=== PATIENT | female | born 1950 | race Caucasian/White ===

== ENCOUNTER 2016-10-04 18:21 | Observation (INO) | payer MEDICARE, BC ==
[2016-10-04] MEDS ORDERED: NITROGLYCERIN OINT 1 INCH/GM PACKET TOPICAL STA (18:39)
[2016-10-04] MEDS ORDERED: NITROGLYCERIN SL TABS 0.4 MG TAB SUBLINGUAL STA (18:39)
[2016-10-04] MEDS ORDERED: ASPIRIN 81 MG CHEW PO STA (18:39)
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
[2016-10-04 18:59] LABS: Basophils % (A) 1 %; CHCM 35.1; Eosinophils # (A) 0.2 k/uL (0-0.7); Eosinophils % (A) 4 %; HCT 35.7 % (34.0-46.0); HGB 12.1 gm/dL (11.4-16.0); Luc # (Auto) 0.21; Luc % (Auto) 4; Lymphocytes # (A) 1.8 k/uL (1.0-4.8); Lymphocytes % (A) 38 %; MCH 29.2 pg (25.0-35.0); MCHC 33.9 g/dL (31.0-37.0); MCV 86.1 fL (80.0-100.0); Mean Platelet Volume 8.4; Monocytes # (A) 0.3 k/uL (0-1.0); Monocytes % (A) 7 %; Neutrophils # (A) 2.3 k/uL (1.3-7.7); Neutrophils % (A) 47 %; RBC 4.15 m/uL (3.80-5.40); RDW 13.8 % (11.5-15.5); WBC 4.8 k/uL (3.8-10.6)
[2016-10-04] MEDS ORDERED: ONDANSETRON 4 MG/2 ML VIAL IVP STA (19:06)
[2016-10-04 19:09] LABS: ALT 29 U/L (9-52); AST 22 U/L (14-36); Alkaline Phosphatase 102 U/L (38-126); Anion Gap 11 mmol/L; Blood Urea Nitrogen 22 mg/dL (7-17); Calcium 9.2 mg/dL (8.4-10.2); Carbon Dioxide 25 mmol/L (22-30); Chloride 105 mmol/L (98-107); Glucose 100 mg/dL (74-99); Magnesium 2.1 mg/dL (1.6-2.3); Non-African American GFR(MDRD) 54 (>60 ml/min/1.73 sqM); Potassium 3.7 mmol/L (3.5-5.1); Sodium 141 mmol/L (137-145); Total Bilirubin 0.3 mg/dL (0.2-1.3); Total Protein 6.5 g/dL (6.3-8.2)
[2016-10-04 19:11] LABS: INR 0.9 (<1.1); Partial Thromboplastin Time 22.9 sec (22.0-30.0); Prothrombin Time 9.6 sec (9.0-12.0)
[2016-10-04 19:26] LABS: Creatine Kinase 97 U/L (30-135)
[2016-10-04 19:39] LABS: Creatine Kinase MB 1.7 ng/mL (0.0-2.4); Troponin I <0.012 ng/mL (0.000-0.034)
--- NOTE | 2016-10-04 20:00 | XR ---
EXAMINATION TYPE: XR chest 2V DATE OF EXAM: 10/04/2016 7:26 PM COMPARISON: N May 18, 2016 HISTORY: Pain, dizzy and nausea TECHNIQUE: Frontal and lateral views of the chest are obtained. FINDINGS: There is redemonstration of the prominent intrathoracic stomach, seen is a gas bubble over the heart. This appears to represent one third of the expected volume of the stomach. The lungs are clear bilaterally. Pleural spaces are negative. The cardiac silhouette is negative. Med iastinal silhouette and bones and soft tissues are negative. IMPRESSION: No acute process. Redemonstrated intrathoracic stomach noted.
[2016-10-04] MEDS ORDERED: NITROGLYCERIN SL TABS 0.4 MG TAB SUBLINGUAL PRN (20:04)
[2016-10-04] MEDS ORDERED: HEPARIN SODIUM,PORCINE 5,000 UNIT/ML 1 ML VIAL IV ONE (20:04)
[2016-10-04] MEDS ORDERED: HEPARIN SODIUM,PORCINE 5,000 UNIT/ML 1 ML VIAL IV PRN (20:04)
[2016-10-04] MEDS ORDERED: HEPARIN SODIUM,PORCINE/D5W PMX 25,000 UNIT in DEXTROSE/WATER 1 500ML.BAG IV SCH (20:15)
[2016-10-04] MEDS: NITROGLYCERIN OINT 1 INCH/GM PACKET TOPICAL SCH (23:50)
[2016-10-05 02:26] LABS: Creatine Kinase 70 U/L (30-135)
[2016-10-05 02:39] LABS: Creatine Kinase MB 1.3 ng/mL (0.0-2.4); Troponin I <0.012 ng/mL (0.000-0.034)
[2016-10-05] MEDS: NITROGLYCERIN OINT 1 INCH/GM PACKET TOPICAL SCH ×2 (06:31→13:31)
[2016-10-05] MEDS: ACETAMINOPHEN TAB 325 MG TAB PO PRN ×2 (06:55→15:32)
[2016-10-05 07:07] LABS: Mean Platelet Volume 8.5
[2016-10-05 07:28] LABS: Creatine Kinase 62 U/L (30-135)
[2016-10-05 07:40] LABS: Creatine Kinase MB 1.1 ng/mL (0.0-2.4); Troponin I <0.012 ng/mL (0.000-0.034)
--- NOTE | 2016-10-05 08:05 | CONS ---
DATE OF CONSULTATION: CHIEF COMPLAINT: Chest pain. This is a 66-year-old lady with history of back pain and hypertension came to hospital complaining of chest pain. She describes it as a chest pressure in the precordial area without definite radiation to neck, arm or back, unassociated with diaphoresis and unrelated to exertion. At the time of my evaluation this morning, she is pain free and hemodynamically stable. She has had 3 sets of troponins that are all within normal limits. She has an evidence of old inferior wall myocardial infarction. EKG shows old inferior wall myocardial infarction. Patient tells me that she had a cardiac catheterization last year at [facility] and had mild nonobstructive disease. I do not have any of these records with me at this time. Past medical history is significant for back pain. Medications at home include Tumeric, ropinirole, Dyazide, Lyrica, K-Dur, Prevacid, Motrin, [place], Celebrex, aspirin and vitamin C. Allergic to MORPHINE, VICODIN and TOLECTIN. Family history is negative for premature coronary artery disease. SOCIAL HISTORY: Negative for current smoking, EtOH abuse or drug abuse. REVIEW OF SYSTEMS: HEENT: Unremarkable. CARDIAC: As described above. RESPIRATORY: Negative. GI: Negative. GENITOURINARY: Negative. ALLERGY/IMMUNOLOGY: Negative. MUSCULOSKELETAL: Significant for arthritis. PSYCHOSOCIAL: Negative. ENDOCRINE: Negative. HEMATOLOGICAL: Negative. DERMATOLOGIC: Negative. CONSTITUTIONAL: Negative. ONCOLOGICAL: Negative. The rest of the system review is not relevant. On exam, comfortable at rest, afebrile, heart rate is 68 beats per minute, blood pressure is 106/67, respiratory rate is 18. There is no jugular venous distention. Carotid upstroke is normal. There is no bruit. Chest exam reveals good air entry bilaterally. Heart exam reveals first and second heart sounds. No gallop. No murmur. Abdomen is soft, nontender. Exam of extremities did not reveal any edema. Peripheral pulses are felt. CROWN IRONER OPERATOR exam did not reveal focal neurological deficits. Labs show that the hemoglobin is 12.1. Platelet count is 186. Creatinine is 1. Potassium is 3.7. Two sets of tropes are negative. ASSESSMENT: Chest pain, rule out coronary artery disease. Patient's chest discomfort somewhat atypical. I will obtain a stress test on her. If this is normal, she will go home . If this is abnormal, we will consider cardiac catheterization on her.
[2016-10-05] MEDS ORDERED: IBUPROFEN 800 MG TAB PO PRN (08:19)
[2016-10-05 08:46] LABS: Cholesterol 146 mg/dL (<200); HDL Cholesterol 47 mg/dL (40-60); Triglycerides 91 mg/dL (<150)
[2016-10-05] MEDS ORDERED: MELOXICAM 7.5 MG TAB PO SCH (09:00)
[2016-10-05] MEDS ORDERED: PANTOPRAZOLE 40 MG TABLET PO SCH (09:00)
[2016-10-05] MEDS ORDERED: TRIAMTERENE-HCTZ 37.5-25MG 1 EACH CAP PO SCH (09:00)
[2016-10-05] MEDS ORDERED: POTASSIUM CHLORIDE ER 20 MEQ TAB.ER PO SCH (09:00)
[2016-10-05] MEDS ORDERED: NON-FORMULARY DRUG (Turmeric Root Extract [Turmeric] 500 MG) PO SCH (09:00)
[2016-10-05] MEDS ORDERED: ASCORBIC ACID 500 MG TAB PO SCH (09:00)
[2016-10-05] MEDS ORDERED: ASPIRIN 325 MG TAB PO SCH (09:00)
[2016-10-05] MEDS ORDERED: PREGABALIN 50 MG CAP PO SCH (09:00)
--- NOTE | 2016-10-05 09:55 | ECHOF ---
Referral Reason:[place] MEASUREMENTS -------- HEIGHT: 167.6 cm WEIGHT: 68.0 kg BP: 106/67 RVIDd: 3.1 cm (< 3.3) IVSd: 1.1 cm (0.6 - 1.1) LVIDd: 4.4 cm (3.9 - 5.3) LVPWd: 1.1 cm (0.6 - 1.1) IVSs: 1.6 cm LVIDs: 2.7 cm LVPWs: 1.3 cm LA Diam: 2.9 cm (2.7 - 3.8) LAESV Index (A-L): 32.31 ml/m Ao Diam: 3.4 cm (2.0 - 3.7) AV Cusp: 2.4 cm (1.5 - 2.6) MV EXCURSION: 13.536 mm (> 18.000) MV EF SLOPE: 28 mm/s (70 - 150) EPSS: 0.3 cm MV E Jossue: 1.00 m/s MV DecT: 192 ms MV A Jossue: 1.12 m/s MV E/A Ratio: 0.90 RAP: 5.00 mmHg RVSP: 23.88 mmHg FINDINGS -------- Sinus rhythm. This was a technically good study. The left ventricular size is normal. There is borderline concentric left ventricular hypertrophy. Overall left ventricular systolic function is normal with, an EF between 60 - 65 %. Mild asymmetric septal hypertrophy with septal thickness 1.3 - 1.5 cm. The right ventricle is normal in size. LA is midly dilated 29-33ml/m2. The right atrium is normal in size. The aortic valve is trileaflet and appears structurally normal. There is trace to mild mitral regurgitation. Trace tricuspid regurgitation present. Right ventricular systolic pressure is normal at < 35 mmHg. Trace/mild (physiologic) pulmonic regurgitation. The aortic root size is normal. Normal inferior vena cava with normal inspiratory collapse consistent with estimated right atrial pressure of 5 mmHg. There is no pericardial effusion. CONCLUSIONS -------- 1. Sinus rhythm. 2. The aortic valve is trileaflet and appears structurally normal. 3. There is trace to mild mitral regurgitation. 4. Trace tricuspid regurgitation present. 5. Right ventricular systolic pressure is normal at < 35 mmHg. 6. Trace/mild (physiologic) pulmonic regurgitation. 7. The aortic root size is normal. 8. There is no pericardial effusion. 9. This was a technically good study. 10. The left ventricular size is normal. 11. There is borderline concentric left ventricular hypertrophy. 12. Overall left ventricular systolic function is normal with, an EF between 60 - 65 %. 13. Mild asymmetric septal hypertrophy with septal thickness 1.3 - 1.5 cm. 14. The right ventricle is normal in size. 15. LA is midly dilated 29-33ml/m2. 16. The right atrium is normal in size. CHAIR MECHANIC: Elza Mondragon RDCS
[2016-10-05] MEDS: HYDROcodone/APAP 10-325MG 1 EACH TAB PO PRN ×2 (10:48→17:05)
--- NOTE | 2016-10-05 11:12 | EST ---
DATE OF SERVICE: 10/05/2016 AGE: 66Y SEX: F HT: 5'6" WT: 155 lbs. Protocol Epi: X Other: Cardiolite Stage: II Dur. of Exercise: 4 minutes *Heart Rate Blood Pressure *Rest: 88 Rest: 149/91 * *Max. Achieved: 145 Maximum BP: 189/81 85% PMHR: 132 100% PMHR: 155 *METS: 4.6 INDICATION OF THE STUDY: Chest pain. MEDICATIONS: STRESS DATA: Pretesting physical examination showed a heart rate of 88, pressure is 149/91 mmHg. Baseline EKG showed sinus rhythm. The patient exercised on the treadmill according to Epi protocol for a total of 4 minutes and achieved 4.6 METs. Max heart rate was 145, which is about 93% of maximum predicted heart rate. Maximum blood pressure was 189/81 mmHg. Clinically, the patient did not have any symptoms and the EKG did not show any significant ST or T wave abnormalities consistent with ischemia. CONCLUSION: 1. Average exercise capacity. 2. Normal EKG in response to exercise.
--- NOTE | 2016-10-05 11:16 | NM ---
EXAMINATION TYPE: NM stress cardiolite complete DATE OF EXAM: 10/05/2016 10:48 AM COMPARISON: Chest x-ray 04 Oct 2016 HISTORY: Chest pain, unstable angina TECHNIQUE: After the intravenous administration of 10.8 mCi Tc 99m Sestamibi - Rest images obtained 80 minutes post injection. The patient exercised using a ADEOLA protocol and 1 minute prior to peak exercise was injected with 27.5 mCi Tc 99m Sestamibi - Stress images obtained 10 minutes post injecti on. FINDINGS: Targeted heart rate was achieved during performance of the study. Review of stress and rest SPECT denia ges demonstrates no distinct perfusion abnormality. Gated analysis shows normal wall motion with an estimated left ventricular ejection fraction of 67 %. IMPRESSION: No scintigraphic evidence for reversible ischemia, consider echocardiographic correlation for ejectio n fraction
[2016-10-05] MEDS ORDERED: MULTIVITAMINS, THERA 1 EACH TAB PO SCH (12:00)
[2016-10-05 15:28] VITALS: BP 133/82; PULSE 63; RESP 18; TEMP 98.5
--- NOTE | 2016-10-05 18:43 | HP ---
DATE OF ADMISSION: CHIEF COMPLAINT: Chest pain. HISTORY OF PRESENT ILLNESS: Ms. Villa is a 66-year-old female with a known history of hypertension, recent back surgery about 3-1/2 months back, GERD, history of myocardial infarction 6 months back, status post cardiac catheterization at [facility] showed mild obstructive coronary artery disease, came to the hospital with complaints of chest pain, mainly in the retrosternal and epigastric region. Associated with nausea. No vomiting. Associated with dizziness, lightheadedness and no diaphoresis. No radiation to the arm, neck or back. Patient was admitted to the hospital for further evaluation. Patient had 3 negative troponins and EKG showed old inferior wall myocardial infarction. Otherwise, the patient is currently chest pain free at this time. Patient felt like a bandlike sensation in the chest. Patient was seen by Cardiology and patient underwent Cardiolite stress test and echocardiogram. REVIEW OF SYSTEMS: CONSTITUTIONAL: No fever. No chills. RESPIRATORY: No cough or sputum production. CARDIOVASCULAR: No chest pain. No short of breath. No leg swelling. ABDOMEN: No nausea or vomiting or abdominal pain. GENITOURINARY: Negative. ENDOCRINE: Negative. PSYCHIATRY: Negative. SKIN: Negative. All other 14 point review of systems negative except as above. PAST MEDICAL HISTORY: Hypertension, chronic back pain and recent back surgery, degenerative disc disease and fibromyalgia, history of myocardial infarction and bilateral lower extremity neuropathy. Hiatal hernia. PAST SURGICAL HISTORY: Appendectomy, hysterectomy, orthopedic surgery, tonsillectomy, back surgery with spacers, 2 rods to L4 and L5. No psychosocial history. 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 No tobacco use. No alcohol use. Patient does use candy containing marijuana. FAMILY HISTORY: Mother has fibromyalgia, neuropathy and cancer. Father, did not know her father. ALLERGIES INCLUDE: HYDROCODONE FROM VICODIN, MORPHINE AND TOLMETIN. Home medication include: Prevacid, Lyrica, Dyazide, Ropinirole, aspirin, Celebrex, K-Dur, ascorbic acid, ibuprofen, multivitamins, turmeric root extract and [place] 10. PHYSICAL EXAMINATION: A 66-year-old female, lying in bed comfortably, awake, alert, oriented, x3, appears to be in no apparent distress. VITALS: Blood pressure is 114/60, pulse is 90, respiratory rate 14, temperature afebrile, pulse ox 98% on room air. HEENT: Atraumatic, normocephalic. Neck is supple. No JVD. CVS: S1, S2 heard. No murmurs, no gallop, no rub. LUNGS: Bilateral air entry is present. No wheezing. No crackles. ABDOMEN: Soft, nontender. Bowel sounds are present. TELECOMMUNICATIONS LINE INSTALLER: Awake, alert, oriented x3. No focal deficit. EXTREMITIES: No edema. Pulses palpable bilaterally. No clubbing or cyanosis. PSYCHIATRIC: Cooperative. LABORATORY DATA: WBC 4.8, hemoglobin 12.1, platelets 186, INR 0.9, sodium 141, potassium 3.7, chloride 105, bicarb is 25. BUN 22, creatinine 1.02, blood sugar is 100, troponin x3 negative. LDL is 81, albumin 4.0. CK showed normal sinus rhythm. CHEST X-RAY: No acute process, showed hiatal hernia. IMPRESSION: 1. Chest pain rule out acute coronary syndrome. Serial EKGs and troponins x3 negative. Patient underwent Cardiolite stress test today. Cardiology is following the patient. Continue with telemetry. 2. History of inferiori wall myocardial infarction and cardiac catheterization showed mild coronary artery disease at [facility]. 3. Gastroesophageal reflux disease. 4. Hiatal hernia. 5. NSAID use in the form of Celebrex and Motrin. 6. Chronic back pain. 7. Degenerative disc disease. 8. Recent back surgery about 2 and half months back. 9. Hiatal hernia. 10. Hypertension. DISCUSSION AND PLAN: Patient will be continued on telemetry monitoring, serial EKGs and troponins. Follow up on Cardiolite stress test report and 2-D echocardiogram. Patient advised to discontinue NSAIDs and follow with stress test report. Continue the current management and further recommendations based on the clinical course.
--- NOTE | 2016-10-06 09:47 | DS ---
DATE OF ADMISSION: 10/04/2016 DATE OF DISCHARGE: 10/05/2016 DISCHARGE DIAGNOSES: 1. Chest pain, rule out acute coronary syndrome. Negative Cardiolite stress test. 2. History of myocardial infarction and mild coronary artery disease. 3. Gastroesophageal reflux disease. 4. Hiatal hernia. 5. NSAID use. 6. Fibromyalgia. 7. Chronic back pain and recent back surgery about 2-1/2 months back. 8. Hypertension. HOSPITAL COURSE: Ms. Villa is a 66-year-old female with a known history of SD was admitted to the hospital with complaints of chest pain, bandlike sensation and the patient underwent serial EKGs and troponins are negative. Patient underwent Cardiolite stress test, which is also negative. Patient recently had a cardiac cath about 6 months back at [facility] for an inferior wall SD. Otherwise, the patient's cardiac workup has been negative at this time. The patient advised to stop using NSAID and continue with Prevacid now. Recommend to follow with branch library clerk as an outpatient for further evaluation. Patient does have a history of hiatal hernia and GERD. Otherwise, patient is chest pain free now. Patient will be discharged home and follow with the primary care physician in 1to 3 days. DISCHARGE PHYSICAL EXAMINATION: A 66-year-old female lying in the bed. awake, alert, oriented x3,k appears to be in no apparent distress. VITALS: Blood pressure 133/82, pulse is 63, respirations 18, temperature afebrile, pulse ox 98% on room air. Laboratory data reviewed. LDL is 81. Discharge physical examination done. Discharge medications include: 1. Prevacid 30 mg p.o. b.i.d. 2. Pregabalin 150 mg p.o. b.i.d. 3. Dyazide 1 capsule p.o. q.a.m., 37.5/25. 4. Ropinirole 2 mg p.o. b.i.d. 5. [place] 10 one tablet q.6 hourly p.r.n. for pain. 6. Aspirin 81 mg p.o. daily. 7. Potassium chloride 20 mEq p.o. daily. 8. Vitamin C 500 mg p.o. daily. 9. Multivitamins 1 tablet p.o. daily. 10. Turmeric Root Extract 500 mg p.o. daily. Patient will be discharged home in stable condition. Follow with Dr. Ron Sol on the September at 3:15 p.m.; Dr. Bakari Jack in 1 to 3 days. Home with self-care. Heart healthy diet and cardiac diet.
== END 2016-10-05 17:30 | disposition home or self-care (01) ==
LOC: EC 18:21 → 3OBS 20:04
PROVIDERS: ADMIT Internal Medicine; ATTEND Internal Medicine
DX: R07.89 Other chest pain (principal); I25.10 Atherosclerotic heart disease of native coronary artery without angina pectoris; G25.81 Restless legs syndrome; G89.29 Other chronic pain; M54.9 Dorsalgia, unspecified; I10 Essential (primary) hypertension; I25.2 Old myocardial infarction; K21.9 Gastro-esophageal reflux disease without esophagitis; K44.9 Diaphragmatic hernia without obstruction or gangrene; M79.7 Fibromyalgia; Z88.5 Allergy status to narcotic agent; R11.0 Nausea; R06.02 Shortness of breath; Z79.82 Long term (current) use of aspirin; Z79.1 Long term (current) use of non-steroidal anti-inflammatories (NSAID); Z79.899 Other long term (current) drug therapy; Z88.8 Allergy status to other drugs, medicaments and biological substances
CPT/HCPCS: 36415; 93005; 93017; 93306; 80061; 80053; 82550 ×2; 82553 ×2; 83735; 84484 ×2; 85025; 85049; 85610; 85730 ×2; 71020; 78452; 99285; 96365; 96366; 96375; 96376; G0378 ×2; A9500; J1644 ×3; J2405

== ENCOUNTER 2018-02-08 20:28 | Emergency (ER) | payer MEDICARE, BC ==
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
[2018-02-08] MEDS ORDERED: HYDROcodone/APAP 7.5-325MG 1 EACH TAB PO ONE (22:08)
[2018-02-08 22:38] LABS: Basophils % (A) 1 %; Eosinophils # (A) 0.2 k/uL (0-0.7); Eosinophils % (A) 4 %; HCT 31.8 % (34.0-46.0); Lymphocytes # (A) 0.9 k/uL (1.0-4.8); Lymphocytes % (A) 17 %; MCH 29.7 pg (25.0-35.0); MCHC 34.7 g/dL (31.0-37.0); MCV 85.5 fL (80.0-100.0); Monocytes # (A) 0.3 k/uL (0-1.0); Monocytes % (A) 6 %; Neutrophils # (A) 3.7 k/uL (1.3-7.7); Neutrophils % (A) 71 %; Platelet Count 190 k/uL (150-450); RBC 3.72 m/uL (3.80-5.40); RDW 14.1 % (11.5-15.5); WBC 5.2 k/uL (3.8-10.6)
[2018-02-08 22:49] LABS: Calcium 9.4 mg/dL (8.4-10.2); Potassium 3.8 mmol/L (3.5-5.1)
--- NOTE | 2018-02-08 23:46 | US ---
EXAMINATION TYPE: US venous doppler duplex LE RT DATE OF EXAM: 02/08/2018 10:08 PM COMPARISON: CLINICAL HISTORY: Pain. Knee pain with slight swelling. No hx of blood clots. On baby aspiring. SIDE PERFORMED: Right TECHNIQUE: The lower extremity deep venous system is examined utilizing real time linear array sonog aury with graded compression, doppler sonography and color-flow sonography. VESSELS IMAGED: External Iliac Vein (EIV) Common Femoral Vein Deep Femoral Vein Greater Saphenous Vein * Femoral Vein Popliteal Vein Small Saphenous Vein * Proximal Calf Veins (* superficial vessels) Right Leg: Negative for DVT IMPRESSION: Normal exam. No evidence of deep venous thrombosis in the right leg.
[2018-02-09] MEDS ORDERED: predniSONE 20 MG TAB PO STA (00:08)
[2018-02-09] MEDS ORDERED: fentaNYL (PF) 50 MCG/ML 2 ML AMP IV STA (00:15)
[2018-02-09 00:32] VITALS: BP 133/71; PULSE 82; RESP 20; TEMP 97.7
== END 2018-02-09 00:53 | disposition home or self-care (01) ==
LOC: EC 20:28
DX: M79.604 Pain in right leg (principal); R58 Hemorrhage, not elsewhere classified; M79.89 Other specified soft tissue disorders; I10 Essential (primary) hypertension; K21.9 Gastro-esophageal reflux disease without esophagitis; M19.90 Unspecified osteoarthritis, unspecified site; G25.81 Restless legs syndrome; G62.9 Polyneuropathy, unspecified; M79.7 Fibromyalgia; I25.2 Old myocardial infarction; Z79.82 Long term (current) use of aspirin; Z79.899 Other long term (current) drug therapy; Z88.5 Allergy status to narcotic agent; Z88.6 Allergy status to analgesic agent; Z82.69 Family history of other diseases of the musculoskeletal system and connective tissue
CPT/HCPCS: 36415; 85379; 80048; 85025; 93971; 99284; 96374; J3010; J7512

== ENCOUNTER 2018-07-29 11:57 | Observation (INO) | payer MEDICARE, BC ==
[2018-07-29] MEDS ORDERED: NITROGLYCERIN OINT 1 INCH/GM PACKET TOPICAL STA (12:03)
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
[2018-07-29 12:18] LABS: Basophils % (A) 0 %; Eosinophils # (A) 0.2 k/uL (0-0.7); Eosinophils % (A) 5 %; HCT 34.4 % (34.0-46.0); HGB 11.6 gm/dL (11.4-16.0); Lymphocytes # (A) 1.1 k/uL (1.0-4.8); Lymphocytes % (A) 27 %; MCH 28.8 pg (25.0-35.0); MCHC 33.6 g/dL (31.0-37.0); MCV 85.8 fL (80.0-100.0); Mean Platelet Volume 7.6; Monocytes # (A) 0.3 k/uL (0-1.0); Monocytes % (A) 6 %; Neutrophils # (A) 2.5 k/uL (1.3-7.7); Neutrophils % (A) 61 %; Platelet Count 206 k/uL (150-450); RBC 4.01 m/uL (3.80-5.40); RDW 13.1 % (11.5-15.5); WBC 4.2 k/uL (3.8-10.6)
[2018-07-29 12:31] LABS: ALT 24 U/L (9-52); AST 21 U/L (14-36); Albumin 4.1 g/dL (3.5-5.0); Alkaline Phosphatase 81 U/L (38-126); Anion Gap 9 mmol/L; Blood Urea Nitrogen 17 mg/dL (7-17); Calcium 9.7 mg/dL (8.4-10.2); Carbon Dioxide 26 mmol/L (22-30); Chloride 108 mmol/L (98-107); Glucose 94 mg/dL (74-99); Magnesium 2.2 mg/dL (1.6-2.3); Potassium 4.1 mmol/L (3.5-5.1); Sodium 143 mmol/L (137-145); Total Bilirubin 0.3 mg/dL (0.2-1.3); Total Protein 6.6 g/dL (6.3-8.2)
--- NOTE | 2018-07-29 12:34 | XR ---
EXAMINATION TYPE: XR chest 2V DATE OF EXAM: 07/29/2018 COMPARISON: 12/23/2016 INDICATION: Chest pain, abnormal EKG TECHNIQUE: Frontal and lateral views of the chest are obtained. FINDINGS: The heart size is normal. The pulmonary vasculature is normal. The lungs are clear. Moderately large hiatal hernia is present containing air. IMPRESSION: 1. No acute pulmonary process. 2. Hiatal hernia
[2018-07-29 12:42] LABS: Creatine Kinase 102 U/L (30-135)
[2018-07-29 12:49] LABS: INR 0.9 (<1.2); Prothrombin Time 9.5 sec (9.0-12.0)
[2018-07-29 12:55] LABS: Creatine Kinase MB 2.2 ng/mL (0.0-2.4); Troponin I <0.012 ng/mL (0.000-0.034)
[2018-07-29 12:56] LABS: D-Dimer 0.84 mg/L FEU (<0.60); Partial Thromboplastin Time 20.4 sec (22.0-30.0)
[2018-07-29 13:28] LABS: Appearance,Urine Clear (Clear); Bilirubin,Urine Negative (Negative); Blood,Urine Negative (Negative); Color,Urine Yellow; Glucose,Urine (UA) Negative (Negative); Ketones,Urine Negative (Negative); Leukocyte Esterase,Urine Small (Negative); Nitrite,Urine Negative (Negative); Protein,Urine Negative (Negative); RBC,Urine 1 /hpf (0-5); Specific Gravity,Urine 1.008 (1.001-1.035); Squamous Epithelial Cell,Urine <1 /hpf (0-4); Urobilinogen,Urine <2.0 mg/dL (<2.0); WBC,Urine 4 /hpf (0-5)
--- NOTE | 2018-07-29 14:15 | CT ---
CT CHEST FOR PULMONARY EMBOLISM. EXAMINATION TYPE: CT chest angio for PE DATE OF EXAM: 07/29/2018 INDICATION: Chest pressure, SOB CT DLP: 211.5 mGycm, Automated exposure control for dose reduction was used. CONTRAST: Patient injected with 100 mL of Isovue 370. COMPARISON: None TECHNIQUE: CT of the chest is performed on a spiral scan at 2 mm thick sections. Study is performed with intravenous contrast timed for evaluation for pulmonary embolism. This will limit additional po rtions of the evaluation. 3-D MIP images reconstructed by the technologist are reviewed on the compu ter in the coronal and sagittal planes. FINDINGS: No persistent filling defects are evident to suggest an acute pulmonary embolism. No mediastinal or hilar adenopathy enlarged by CT criteria is evident. The ascending aorta diameter at the level of the main pulmonary artery is 4.2 cm. The main pulmonary artery diameter at the bifur cation is 2.8 cm. Lung windows are clear. There is a large hiatal hernia present. Limited CT sections are obtained through the upper abdomen. There is a cyst on the superior lateral r ight upper kidney measuring 3.9 cm and 14 Hounsfield units. There may be a cyst within the superior a nterior right lobe liver measuring 2.0 cm and 17 Hounsfield units. IMPRESSIONS: 1. No acute pulmonary embolism. 2. Ascending thoracic aortic aneurysm measuring 4.2 cm AP dimension. 3. A large hiatal hernia. 4. Suspected renal and hepatic cysts.
[2018-07-29] MEDS ORDERED: HEPARIN SODIUM,PORCINE 5,000 UNIT/ML 1 ML VIAL IV ONE (14:30)
[2018-07-29] MEDS ORDERED: HEPARIN SOD,PORK IN 0.45% NACL 25,000 UNIT in 0.45% NACL 1 500ML.BAG IV SCH (14:30)
[2018-07-29] MEDS ORDERED: NITROGLYCERIN SL TABS 0.4 MG TAB SUBLINGUAL PRN (14:31)
[2018-07-29] MEDS ORDERED: HEPARIN SOD,PORK IN 0.45% NACL 25,000 UNIT in 0.45% NACL 1 250ML.BAG IV SCH (14:45)
[2018-07-29] MEDS ORDERED: NALOXONE 0.4 MG/ML 1 ML VIAL IV PRN (15:28)
[2018-07-29] MEDS ORDERED: MORPHINE SULFATE 4 MG/ML SYRINGE IV PRN (15:28)
[2018-07-29] MEDS ORDERED: MELATONIN 3 MG TABLET PO PRN (15:28)
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
[2018-07-29] MEDS: NITROGLYCERIN OINT 1 INCH/GM PACKET TOPICAL SCH ×2 (16:13→23:49)
[2018-07-29] MEDS: ACETAMINOPHEN TAB 325 MG TAB PO PRN (17:35)
[2018-07-29 18:39] LABS: Creatine Kinase 81 U/L (30-135)
[2018-07-29 18:54] LABS: Creatine Kinase MB 1.4 ng/mL (0.0-2.4); Troponin I <0.012 ng/mL (0.000-0.034)
[2018-07-29] MEDS: PREGABALIN 100 MG CAP PO SCH (19:12)
[2018-07-29] MEDS ORDERED: HEPARIN SODIUM,PORCINE 5,000 UNIT/ML 1 ML VIAL IV PRN (19:59)
[2018-07-29] MEDS: HYDROcodone/APAP 5-325MG 1 EACH TAB PO PRN (21:04)
[2018-07-29 23:52] LABS: Creatine Kinase 71 U/L (30-135)
[2018-07-30 00:05] LABS: Creatine Kinase MB 1.2 ng/mL (0.0-2.4); Troponin I <0.012 ng/mL (0.000-0.034)
[2018-07-30] MEDS: NITROGLYCERIN OINT 1 INCH/GM PACKET TOPICAL SCH (06:26)
[2018-07-30] MEDS: HYDROcodone/APAP 5-325MG 1 EACH TAB PO PRN (06:54)
[2018-07-30] MEDS ORDERED: NITROGLYCERIN SL TABS 0.4 MG TAB SUBLINGUAL PRN (07:00)
[2018-07-30] MEDS ORDERED: ALPRAZolam 0.5 MG TAB PO PRN (07:00)
[2018-07-30] MEDS ORDERED: SODIUM CHLORIDE 0.9% 1,000 ML in EMPTY BAG 1 BAG IV ONE (07:00)
[2018-07-30] MEDS ORDERED: ATORVASTATIN 80 MG TAB PO STA (07:00)
[2018-07-30] MEDS ORDERED: ALPRAZolam 0.25 MG TAB PO PRN (07:00)
[2018-07-30] MEDS ORDERED: ASPIRIN 325 MG TAB PO STA (07:00)
[2018-07-30 07:27] LABS: Cholesterol 155 mg/dL (<200); HDL Cholesterol 44 mg/dL (40-60); LDL Cholesterol,Calculated 76 mg/dL (0-99); Triglycerides 176 mg/dL (<150)
[2018-07-30] MEDS ORDERED: PANTOPRAZOLE 40 MG TABLET PO SCH (07:30)
--- NOTE | 2018-07-30 07:35 | CONS ---
CONSULTATION Mrs. Villa is a 68-year-old female who presented with symptoms of chest discomfort. Patient has a history of hypertension and has been complaining of chest discomfort on and off going on for few months. The discomfort got worse yesterday, at times exertional in pattern, associated with some dyspnea. Patient has been told that she had a minor heart attack in 2016 and underwent a cardiac catheterization performed at [facility] and at that time was told that she had mild obstructive coronary artery disease. The full details of that are not available to me. She was in the hospital in September of 2015 and at that time underwent a myocardial perfusion imaging that revealed no evidence of inducible ischemia. Patient has no symptoms for edema. She has occasional palpitation. No syncope. History of some dizziness. Her coronary risk factors are remarkable for hypertension. She is nonsmoker, nondiabetic and her lipid profile has been reported to be normal. MEDICATION: Her medications at home include ropinirole, Dyazide, Lyrica, Prevacid, [place], vitamin D and calcium. She has a prior history of neuropathy. REVIEW OF SYSTEMS: RESPIRATORY SYSTEM: No recent wheezing or cough. No history of documented obstructive lung disease. GI SYSTEM: No recent GI bleeding. No peptic ulcer disease. SYSTEM: No dysuria or hematuria. NERVOUS SYSTEM: No history of stroke or seizure. PHYSICAL EXAMINATION: She is a 68-year-old female, alert, oriented, in no apparent distress. Blood pressure 122/70 with a heart rate in the 60s. HEAD: Normocephalic. EYES: Sclerae nonicteric. NECK: Good upstroke, no bruit, no venous distension. LUNGS: Clear to auscultation. HEART: Regular rate and rhythm, S1, S2. No S3 with a systolic murmur heard at the base. No diastolic murmur, no rub. ABDOMEN: Soft, nontender. Positive bowel sounds, no organomegaly. EXTREMITIES: No edema, intact pulses. LAB DATA: Revealed troponin less than 0.012 for three samples. D-dimer 0.84. BUN and creatinine 17 and 0.79, hemoglobin of 11.6. EKG revealed a sinus mechanism, normal axis and intervals. No acute changes. CT angiogram of the chest showed no evidence of pulmonary embolism. The ascending aorta measured 4.2 cm. She had hiatal hernia. Her chest x-ray shows no evidence of infiltrate. IMPRESSION: 1. Chest discomfort of unclear etiology at times exertional in pattern raising the possibility of obstructive coronary artery disease. 2. History of possible obstructive coronary artery disease in the past. 3. Hypertension. 4. Hiatal hernia. RECOMMENDATION: In view of her persistent symptoms and her presentation, I have recommended proceeding with coronary angiography to assess her status and guide her treatment. I have discussed the recommendation with the patient as well as the risks and complication. She is in full understanding and agreement. Thank you for this consult. Will follow with you. MMLETITIAL / IJN: [id number] /
[2018-07-30] MEDS: PREGABALIN 100 MG CAP PO SCH (07:58)
[2018-07-30] MEDS ORDERED: ASPIRIN 325 MG TAB PO SCH (09:00)
[2018-07-30] MEDS ORDERED: TRIAMTERENE-HCTZ 37.5-25MG 1 EACH CAP PO SCH (09:00)
[2018-07-30] MEDS ORDERED: fentaNYL (PF) 50 MCG/ML 2 ML AMP ONE (09:24)
[2018-07-30] MEDS ORDERED: VERAPAMIL 2.5 MG/ML 2 ML AMP ONE (09:24)
[2018-07-30] MEDS ORDERED: LIDOCAINE 1% INJ 10MG/ML (20 ML MDV) ONE (09:24)
[2018-07-30] MEDS ORDERED: HEPARIN SODIUM 1,000 UN/ML (10ML VL) ONE (09:24)
[2018-07-30] MEDS ORDERED: IV FLUID CONTINUATION 200 ML IV ONE (09:25)
[2018-07-30] MEDS ORDERED: fentaNYL (PF) 50 MCG/ML 2 ML AMP IVP ONE (10:11)
[2018-07-30] MEDS ORDERED: LIDOCAINE 1% (PF) 10MG/ML VIAL SQ ONE (10:12)
[2018-07-30] MEDS ORDERED: MIDAZOLAM 2 MG/2 ML VIAL IVP ONE (10:14)
[2018-07-30] MEDS ORDERED: VERAPAMIL SYRINGE (5 MG/10 ML) INTRAARTER ONE (10:15)
[2018-07-30] MEDS ORDERED: IOPAMIDOL-370 125ML BTL INJ ONE (10:28)
[2018-07-30] MEDS ORDERED: RX INFO: IV CONTRAST WAS GIVEN 1 EACH MISC MISCELLANE PRN (10:39)
[2018-07-30] MEDS ORDERED: SODIUM CHLORIDE 0.9% 1,000 ML IV SCH (10:45)
--- NOTE | 2018-07-30 10:55 | CC ---
CARDIAC CATHETERIZATION REPORT Mrs. Villa is a 68-year-old female who presented with symptoms of chest discomfort on and off, at times exertional in pattern that persisted. Her cardiac enzymes and EKG were normal. She has been told in the past that she has mild coronary artery disease by cardiac catheterization done at [facility] as well as a prior myocardial infarction. Because of her persistent symptoms and her prior history, recommendation made regarding cardiac catheterization. The procedures, risks and complications were discussed with the patient who is in full understanding and agreement. PROCEDURE: Patient was brought to the labor relations manager in a fasting semi-sedated state after receiving fentanyl and Benadryl and achieving moderate conscious sedated state. Using Xylocaine anesthesia and Seldinger technique, a 6-Mohawk sheath was introduced in the right radial artery. Selective right and left coronary angiography performed using 5-Mohawk 3.5 bend right and left Florence catheter, multiple views of the coronary artery including hemiaxial views were obtained. Following that, a 5-Mohawk tight pigtail catheter was introduced in the left ventricle and a 30 degree CONNOR view of the left ventricle was obtained. Following that, catheter and sheath were removed. Hemostasis was obtained with deployment of a TR band. There was no immediate complication. Patient is returned to her room in stable condition. Of note, patient received 3500 of intravenous heparin as well as intra-arterial verapamil. LEFT MAIN: This is a short size vessel, bifurcating into left circumflex, left anterior descending artery. Left main coronary artery has no evidence of high-grade stenosis. LEFT ANTERIOR DESCENDING ARTERY: This is a large-sized vessel, reaching toward the apex with a wraparound apex segment, giving rise to a large proximal diagonal branch. The left anterior descending artery as well as branches have no evidence of obstructive coronary artery disease. LEFT CIRCUMFLEX: This is a nondominant vessel, giving rise to a large proximal obtuse marginal branch. The left circumflex as well as branches have no evidence of obstructive coronary artery disease. RIGHT CORONARY ARTERY: This is a dominant vessel, large in caliber, bifurcating distally to PDA posterolateral single branches. The right coronary artery proximally has a 20% plaque. The rest of the vessel has no high-grade stenosis. LEFT VENTRICULOGRAM: Left ventriculogram is performed in 30 degree CONNOR view and revealed normal left ventricular size and systolic function. There was arrhythmia induced mitral regurgitation. Dilatation of the ascending aorta was noted measuring up to 4.2 cm. HEMODYNAMICS: There was no gradient across the aortic valve. The left ventricular end-diastolic pressure was 8-10 mmHg. IMPRESSION: 1. Mild intimal disease involving the right coronary artery. 2. Normal left ventricular size and systolic function. 3. Dilatation of the ascending aorta. RECOMMENDATION: In view of finding anatomy, I recommend continue medical therapy with aggressive coronary risk modifications being initiated. Those findings and recommendation were discussed with the patient and she is in full understanding and agreement. Duration of the procedure is 20 minutes. MMODL / IJN: [id number] /
[2018-07-30 11:02] VITALS: RESP 16; TEMP 97.8
--- NOTE | 2018-07-30 11:18 | ECHOF ---
Referral Reason:Chest pain MEASUREMENTS -------- HEIGHT: 167.6 cm WEIGHT: 66.7 kg BP: 152/78 RVIDd: 3.4 cm (< 3.3) IVSd: 0.9 cm (0.6 - 1.1) LVIDd: 3.9 cm (3.9 - 5.3) LVPWd: 0.9 cm (0.6 - 1.1) IVSs: 1.1 cm LVIDs: 3.0 cm LVPWs: 1.2 cm LAESV Index (A-L): 45.35 ml/m Ao Diam: 3.2 cm (2.0 - 3.7) AV Cusp: 2.2 cm (1.5 - 2.6) LA Diam: 3.0 cm (2.7 - 3.8) EPSS: 0.3 cm MV E Jossue: 0.79 m/s MV DecT: 320 ms MV A Jossue: 1.15 m/s MV E/A Ratio: 0.69 RAP: 5.00 mmHg RVSP: 24.60 mmHg MV EF SLOPE: 21.26 mm/s (70 - 150) MV EXCURSION: 1.51 cm (> 18.000) FINDINGS -------- Sinus rhythm. This was a technically adequate study. The left ventricular size is normal. Left ventricular wall thickness is normal. Overall left vent ricular systolic function is normal with, an EF between 55 - 60 %. The right ventricle is mildly enlarged. LA is severely dilated >40 ml/m2 The right atrial size is normal. Aortic valve is trileaflet and is mildly thickened. There is mild aortic regurgitation. There is no evidence of aortic stenosis. The mitral valve leaflets are mildly thickened. Mild mitral regurgitation is present. Trace tricuspid regurgitation present. Right ventricular systolic pressure is normal at < 35 mmHg. The right ventricular systolic pressure, as measured by Doppler, is 24.60mmHg. Trace/mild (physiologic) pulmonic regurgitation. The aortic root size is normal. Normal inferior vena cava with normal inspiratory collapse consistent with estimated right atrial pre ssure of 5 mmHg. There is no pericardial effusion. CONCLUSIONS -------- 1. Sinus rhythm. 2. This was a technically adequate study. 3. The left ventricular size is normal. 4. Left ventricular wall thickness is normal. 5. Overall left ventricular systolic function is normal with, an EF between 55 - 60 %. 6. The right ventricle is mildly enlarged. 7. LA is severely dilated >40 ml/m2 8. Aortic valve is trileaflet and is mildly thickened. 9. There is mild aortic regurgitation. 10. The mitral valve leaflets are mildly thickened. 11. Mild mitral regurgitation is present. 12. Trace tricuspid regurgitation present. 13. Right ventricular systolic pressure is normal at < 35 mmHg. 14. Trace/mild (physiologic) pulmonic regurgitation. 15. The aortic root size is normal. 16. There is no pericardial effusion. HVAC SALES REPRESENTATIVE: Quique Pastrana RDCS
[2018-07-30 12:45] VITALS: BP 116/79; PULSE 60
[2018-07-30 13:02] VITALS: BMI 23.7
[2018-07-30] MEDS: ACETAMINOPHEN TAB 325 MG TAB PO PRN (13:43)
--- NOTE | 2018-07-30 14:37 | P.DS ---
Providers Date of admission: 07/29/18 14:31 Expected date of discharge: 07/30/18 Attending physician: Woo Dodson MD Consults: 07/29/18 14:31 Consult Physician Urgent Consulting Provider: [facility] Consult Reason/Comments: Unstable angina Do you want consulting provider notified?: Yes Primary care physician: Bakari Jack - Discharge Diagnosis(es) (1) Thoracic aortic aneurysm Current Visit: Yes Status: Acute (2) Hypertension Current Visit: Yes Status: Acute (3) Neuropathy Current Visit: Yes Status: Acute (4) Chest pain Current Visit: No Status: Acute Hospital Course: 68-year-old female with past history of hypertension and previous MA presents to the ED for chest pain. Patient endorses chest pain that has been going on and off for the past few weeks. This pain as being constant and progressively getting worse. Today, she went to an urgent care clinic who performed an EKG which was abnormal. She was advised to come to the ED. Her chest pain is left-sided, pressure-like in nature. Pain is 5-7/10 in severity. Pain occasionally radiates to the back. Patient also describes the pain shoots up to the left side of the neck. Her chest pain is associated with shortness of breath. Patient also endorses a decreased exercise tolerance and increased fatigue over the past couple weeks. She also complains of a headache that started in the ED. She denies any lower extremity edema, nausea, vomiting, fever, cough, palpitations, changes in urination or bowel habits. No changes in appetite or weight. In the ED, CBC was unremarkable. D-dimer was slightly elevated at 0.84, CTA chest was negative for PE. CT of the chest however did show the ascending thoracic aortic aneurysm measuring 4.2 cm. CMP was essentially negative. Initial troponin was less than 0.012, EKG showing normal sinus rhythm. Chest x- ray was negative for acute abnormalities. Patient is admitted for unstable angina, started on heparin drip, cardiology on consult. Echocardiogram showed EF of 55-60% with no diastolic dysfunction. Cardiology evaluated the patient and recommended catheterization. Cardiac cath was performed and showed mild disease of the RCA and reconfirmed the 4.2 cm ascending aortic dilation. Cardiology recommended medical management with the patient for discharge. Pertinent Studies: Chest x-ray Echocardiogram Cardiac catheterization Procedures: Cardiac catheterization Patient Condition at Discharge: Stable Plan - Discharge Summary Discharge Rx Participant: Yes New Discharge Prescriptions: New Aspirin 81 mg PO DAILY #30 chew Atorvastatin Calcium [Lipitor] 20 mg PO HS #30 tab Continue rOPINIRole HCL [rOPINIRole HCL ER] 2 mg PO BID Triamterene-Hctz 37.5-25Mg [Dyazide 37.5-25 Capsule] 1 cap PO QAM Lansoprazole [Prevacid] 30 mg PO BID Pregabalin [Lyrica] 200 mg PO BID Hydrocodone/Acetaminophen [Limon 10-325] 1 tab PO Q6H PRN PRN Reason: Pain Cyanocobalamin (Vitamin B-12) [Vitamin B-12] 1,000 mcg PO DAILY Calcium Carbonate [Calcium] 600 mg PO DAILY Discharge Medication List Lansoprazole [Prevacid] 30 mg PO BID 01/22/16 [History] Triamterene-Hctz 37.5-25Mg [Dyazide 37.5-25 Capsule] 1 cap PO QAM 01/22/16 [ History] rOPINIRole HCL [rOPINIRole HCL ER] 2 mg PO BID 01/22/16 [History] Calcium Carbonate [Calcium] 600 mg PO DAILY 07/29/18 [History] Cyanocobalamin (Vitamin B-12) [Vitamin B-12] 1,000 mcg PO DAILY 07/29/18 [ History] Hydrocodone/Acetaminophen [Limon 10-325] 1 tab PO Q6H PRN 07/29/18 [History] Pregabalin [Lyrica] 200 mg PO BID 07/29/18 [History] Aspirin 81 mg PO DAILY #30 chew 07/30/18 [Rx] Atorvastatin Calcium [Lipitor] 20 mg PO HS #30 tab 07/30/18 [Rx] Follow up Appointment(s)/Referral(s): Armen Shelton MD [STAFF PHYSICIAN] - 08/08/18 4:00 pm Bakari Jack MD [Primary Care Provider] - 1-2 days Activity/Diet/Wound Care/Special Instructions: Diet: HEART healthy Please follow-up with your primary care provider within 1 week of discharge. Please follow-up with your greens keeper Dr. Shelton within 1 week of discharge. Please take all medications as advised Note to PCP: Patient has a thoracic ascending aortic dilation of 4.2 cm. This will need interval follow-up. Discharge Disposition: HOME SELF-CARE
[2018-07-31] MEDS ORDERED: ASPIRIN 81 MG PO SCH (09:00)
== END 2018-07-30 16:03 | disposition home or self-care (01) ==
LOC: EC 11:57 → 1SOBS 14:31
PROVIDERS: ADMIT Family Medicine; ATTEND Family Medicine
DX: R07.89 Other chest pain (principal); I71.2 Thoracic aortic aneurysm, without rupture; I10 Essential (primary) hypertension; R06.02 Shortness of breath; I25.10 Atherosclerotic heart disease of native coronary artery without angina pectoris; R94.31 Abnormal electrocardiogram [ECG] [EKG]; G62.9 Polyneuropathy, unspecified; M79.7 Fibromyalgia; R79.89 Other specified abnormal findings of blood chemistry; K21.9 Gastro-esophageal reflux disease without esophagitis; M19.90 Unspecified osteoarthritis, unspecified site; K44.9 Diaphragmatic hernia without obstruction or gangrene; G25.81 Restless legs syndrome; M54.9 Dorsalgia, unspecified; R61 Generalized hyperhidrosis; R32 Unspecified urinary incontinence; R51 Headache; I25.2 Old myocardial infarction; Z79.899 Other long term (current) drug therapy; Z88.5 Allergy status to narcotic agent; Z88.6 Allergy status to analgesic agent; Z90.49 Acquired absence of other specified parts of digestive tract; Z90.710 Acquired absence of both cervix and uterus; Z87.820 Personal history of traumatic brain injury; Z82.0 Family history of epilepsy and other diseases of the nervous system; Z82.69 Family history of other diseases of the musculoskeletal system and connective tissue; Z80.9 Family history of malignant neoplasm, unspecified
CPT/HCPCS: 96365; 96366 ×2; 96376 ×2; 99291; 36415; 93005; 93306; 93458; 85379; 83880; 80061; 80053; 82550; 82553; 83735; 84484; 85025; 85610; 85730 ×2; 81001; 71046; 71275; G0378 ×2; C1894; C1769 ×2; J2250; J1644 ×3; J3010; J2001; Q9967 ×2

== ENCOUNTER 2018-10-22 12:53 | Observation (INO) | payer MEDICARE, BC ==
[2018-10-22 13:50] LABS: Basophils % (A) 1 %; Eosinophils # (A) 0.2 k/uL (0-0.7); Eosinophils % (A) 4 %; HCT 34.2 % (34.0-46.0); HGB 11.2 gm/dL (11.4-16.0); Lymphocytes # (A) 1.1 k/uL (1.0-4.8); Lymphocytes % (A) 25 %; MCH 28.6 pg (25.0-35.0); MCHC 32.6 g/dL (31.0-37.0); MCV 87.7 fL (80.0-100.0); Mean Platelet Volume 8.5; Monocytes # (A) 0.2 k/uL (0-1.0); Monocytes % (A) 5 %; Neutrophils # (A) 2.8 k/uL (1.3-7.7); Neutrophils % (A) 64 %; Platelet Count 163 k/uL (150-450); RDW 13.9 % (11.5-15.5); WBC 4.4 k/uL (3.8-10.6)
[2018-10-22 13:56] LABS: Albumin 3.7 g/dL (3.5-5.0); Calcium 9.1 mg/dL (8.4-10.2); Potassium 3.9 mmol/L (3.5-5.1); Total Bilirubin 0.3 mg/dL (0.2-1.3)
[2018-10-22 14:04] LABS: INR 0.9 (<1.2); Partial Thromboplastin Time 23.3 sec (22.0-30.0); Prothrombin Time 9.9 sec (9.0-12.0)
[2018-10-22] MEDS ORDERED: ASPIRIN 325 MG TAB PO STA (14:21)
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
--- NOTE | 2018-10-22 14:32 | XR ---
EXAMINATION TYPE: XR chest 2V DATE OF EXAM: 10/22/2018 COMPARISON: None INDICATION: Chest pain shortness of breath TECHNIQUE: Frontal and lateral views of the chest are obtained. FINDINGS: The heart size is normal. The pulmonary vasculature is normal. The lungs are clear. There is a moderate size hiatal hernia present. EKG lead overlies the chest. Ne cklace is present. IMPRESSION: 1. No acute pulmonary process. 2. Moderate size hiatal hernia.
[2018-10-22] MEDS ORDERED: HEPARIN SODIUM,PORCINE 5,000 UNIT/ML 1 ML VIAL IV ONE (14:39)
[2018-10-22] MEDS ORDERED: HEPARIN SODIUM,PORCINE 5,000 UNIT/ML 1 ML VIAL IV PRN (14:39)
[2018-10-22] MEDS ORDERED: FUROSEMIDE 10 MG/ML 2 ML VIAL IV ONE (14:39)
[2018-10-22] MEDS ORDERED: NITROGLYCERIN OINT 1 INCH/GM PACKET TOPICAL STA (14:40)
[2018-10-22] MEDS ORDERED: HEPARIN SOD,PORK IN 0.45% NACL 25,000 UNIT in 0.45% NACL 1 250ML.BAG IV SCH (14:45)
--- NOTE | 2018-10-22 15:18 | CT ---
CT CHEST FOR PULMONARY EMBOLISM. EXAMINATION TYPE: CT angio chest DATE OF EXAM: 10/22/2018 INDICATION: shortness of breath CT DLP: 266.3 mGycm, Automated exposure control for dose reduction was used. CONTRAST: Patient injected with 100 mL of Isovue 370. COMPARISON: None TECHNIQUE: CT of the chest is performed on a spiral scan at 2 mm thick sections. Study is performed with intravenous contrast timed for evaluation for pulmonary embolism. This will limit additional po rtions of the evaluation. 3-D MIP images reconstructed by the technologist are reviewed on the compu ter in the coronal and sagittal planes. FINDINGS: No persistent filling defects are evident to suggest an acute pulmonary embolism. No mediastinal or hilar adenopathy enlarged by CT criteria is evident. The ascending aorta diameter at the level of the main pulmonary artery is 4.2 cm. The main pulmonary artery diameter at the bifur cation is 3.2 cm. A 1.2 cm right infrahilar nodule is present. Mediastinal windows series 401 image 75. Moderately large hiatal hernia is present. Cysts present on the posterior lateral upper pole right ki dney measuring 3.6 cm. There is a hypodensity within the superior medial right lobe liver measuring 1 .6 cm and 15 Hounsfield units may be a cyst. IMPRESSIONS: 1. No persistent filling defects to suggest acute pulmonary embolism. 2. Nodule within the right infrahilar region. Follow-up is recommended. 3. Ascending thoracic aortic aneurysm measuring 4.2 cm.
[2018-10-22] MEDS ORDERED: NALOXONE 0.4 MG/ML 1 ML VIAL IV PRN (15:30)
[2018-10-22] MEDS ORDERED: HYDROmorphone 0.5 MG/0.5 ML SYRINGE IVP PRN (15:35)
[2018-10-22] MEDS ORDERED: ONDANSETRON 4 MG/2 ML VIAL IVP PRN (15:35)
[2018-10-22] MEDS ORDERED: ACETAMINOPHEN TAB 500 MG TAB PO STA (16:12)
[2018-10-22] MEDS ORDERED: ACETAMINOPHEN TAB 325 MG TAB PO PRN (16:33)
[2018-10-22] MEDS ORDERED: NITROGLYCERIN SL TABS 0.4 MG TAB SUBLINGUAL PRN (16:33)
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
--- NOTE | 2018-10-22 18:00 | ECHOF ---
Referral Reason:CP MEASUREMENTS -------- HEIGHT: 167.6 cm WEIGHT: 68.0 kg BP: 133/83 IVSd: 1.1 cm (0.6 - 1.1) LVIDd: 5.0 cm (3.9 - 5.3) LVPWd: 1.0 cm (0.6 - 1.1) IVSs: 1.1 cm LVIDs: 4.3 cm LVPWs: 1.2 cm LAESV Index (A-L): 53.20 ml/m Ao Diam: 3.2 cm (2.0 - 3.7) AV Cusp: 2.1 cm (1.5 - 2.6) LA Diam: 3.7 cm (2.7 - 3.8) MV EXCURSION: 16.703 mm (> 18.000) MV EF SLOPE: 112 mm/s (70 - 150) MV E Jossue: 1.33 m/s MV DecT: 152 ms MV A Jossue: 0.99 m/s MV E/A Ratio: 1.34 RAP: 15.00 mmHg RVSP: 55.48 mmHg FINDINGS -------- Sinus rhythm. This was a technically good study. The left ventricular size is normal. There is borderline concentric left ventricular hypertrophy. Overall left ventricular systolic function is moderately impaired with, an EF between 35 - 40 %. M id lateral LV wall motion is hypokinetic. Mid inferior LV wall motion is hypokinetic. Mid infer oseptal LV wall motion is hypokinetic. Mid anteroseptal LV wall motion is hypokinetic. Apical i nferior LV wall motion is hypokinetic. Apical septum LV wall motion is hypokinetic. The right ventricle is normal in size and function. LA is severely dilated >40 ml/m2 The right atrium is normal in size. Aortic valve is trileaflet and is mildly thickened. There is [id number] aortic regurgitation. There is no evidence of aortic stenosis. The mitral valve leaflets are mildly thickened. Mild mitral annular calcification present. Modera te mitral regurgitation is present. Mild tricuspid regurgitation present. There is mild to moderate pulmonary hypertension. The right ventricular systolic pressure, as measured by Doppler, is 55.48mmHg. Trace/mild (physiologic) pulmonic regurgitation. The aortic root size is normal. The inferior vena cava is dilated with poor inspiratory collapse which is consistent with estimated r ight atrial pressure of 20 mmHg. There is a small pericardial effusion is located near the right ventricle. CONCLUSIONS -------- 1. Sinus rhythm. 2. This was a technically good study. 3. The left ventricular size is normal. 4. There is borderline concentric left ventricular hypertrophy. 5. Overall left ventricular systolic function is moderately impaired with, an EF between 35 - 40 %. 6. Mid lateral LV wall motion is hypokinetic. 7. Mid inferior LV wall motion is hypokinetic. 8. Mid inferoseptal LV wall motion is hypokinetic. 9. Mid anteroseptal LV wall motion is hypokinetic. 10. Apical inferior LV wall motion is hypokinetic. 11. Apical septum LV wall motion is hypokinetic. 12. LA is severely dilated >40 ml/m2 13. Aortic valve is trileaflet and is mildly thickened. 14. There is [id number] aortic regurgitation. 15. There is no evidence of aortic stenosis. 16. The mitral valve leaflets are mildly thickened. 17. Mild mitral annular calcification present. 18. Moderate mitral regurgitation is present. 19. Mild tricuspid regurgitation present. 20. There is mild to moderate pulmonary hypertension. 21. The right ventricular systolic pressure, as measured by Doppler, is 55.48mmHg. 22. Trace/mild (physiologic) pulmonic regurgitation. 23. The aortic root size is normal. 24. The inferior vena cava is dilated with poor inspiratory collapse which is consistent with estimat ed right atrial pressure of 20 mmHg. 25. There is a small pericardial effusion is located near the right ventricle. STOCKBROKING DEALER: Quique Pastrana RDCS
[2018-10-22] MEDS: PREGABALIN 100 MG CAP PO SCH (20:31)
[2018-10-22] MEDS: METOPROLOL TARTRATE 25 MG TAB PO SCH (20:39)
[2018-10-22] MEDS: PANTOPRAZOLE 40 MG TABLET PO SCH (20:40)
[2018-10-22] MEDS: HYDROcodone/APAP 10-325MG 1 EACH TAB PO PRN (20:40)
[2018-10-22] MEDS ORDERED: ATORVASTATIN 80 MG TAB PO SCH (21:00)
[2018-10-23 07:18] LABS: Basophils % (A) 1 %; Eosinophils # (A) 0.3 k/uL (0-0.7); Eosinophils % (A) 8 %; HCT 32.7 % (34.0-46.0); HGB 10.7 gm/dL (11.4-16.0); Lymphocytes # (A) 1.2 k/uL (1.0-4.8); Lymphocytes % (A) 38 %; MCH 28.9 pg (25.0-35.0); MCHC 32.6 g/dL (31.0-37.0); MCV 88.5 fL (80.0-100.0); Mean Platelet Volume 8.6; Monocytes # (A) 0.2 k/uL (0-1.0); Monocytes % (A) 6 %; Neutrophils # (A) 1.5 k/uL (1.3-7.7); Neutrophils % (A) 45 %; Platelet Count 144 k/uL (150-450); RBC 3.69 m/uL (3.80-5.40); RDW 13.9 % (11.5-15.5); WBC 3.2 k/uL (3.8-10.6)
[2018-10-23 07:35] LABS: Cholesterol 141 mg/dL (<200); HDL Cholesterol 52 mg/dL (40-60); LDL Cholesterol,Calculated 72 mg/dL (0-99); Triglycerides 86 mg/dL (<150)
[2018-10-23 08:04] VITALS: BP 149/94; PULSE 63; RESP 18; TEMP 97.5
[2018-10-23] MEDS ORDERED: CYANOCOBALAMIN 500 MCG TAB PO SCH (09:00)
[2018-10-23] MEDS ORDERED: ASPIRIN 325 MG TAB PO SCH (09:00)
[2018-10-23] MEDS ORDERED: ASPIRIN 81 MG PO SCH (09:00)
[2018-10-23] MEDS ORDERED: TRIAMTERENE-HCTZ 37.5-25MG 1 EACH CAP PO SCH (09:00)
[2018-10-23] MEDS ORDERED: LISINOPRIL 10 MG TAB PO SCH (09:00)
[2018-10-23] MEDS ORDERED: LISINOPRIL 20 MG TAB PO SCH (09:00)
[2018-10-23] MEDS: PANTOPRAZOLE 40 MG TABLET PO SCH (09:09)
[2018-10-23] MEDS: METOPROLOL TARTRATE 25 MG TAB PO SCH (09:10)
[2018-10-23] MEDS: PREGABALIN 100 MG CAP PO SCH (09:10)
[2018-10-23] MEDS: HYDROcodone/APAP 10-325MG 1 EACH TAB PO PRN (09:14)
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
== END 2018-10-23 12:15 | disposition home or self-care (01) ==
LOC: EC 12:53 → 1SOBS 15:30
PROVIDERS: ADMIT Family Medicine; ATTEND Family Medicine
DX: R07.2 Precordial pain (principal); R11.0 Nausea; R06.02 Shortness of breath; R42 Dizziness and giddiness; R68.84 Jaw pain; I25.2 Old myocardial infarction; G89.29 Other chronic pain; R79.89 Other specified abnormal findings of blood chemistry; I10 Essential (primary) hypertension; I16.0 Hypertensive urgency; K21.9 Gastro-esophageal reflux disease without esophagitis; M79.7 Fibromyalgia; R41.3 Other amnesia; M19.90 Unspecified osteoarthritis, unspecified site; G25.81 Restless legs syndrome; G90.9 Disorder of the autonomic nervous system, unspecified; M54.9 Dorsalgia, unspecified; I25.10 Atherosclerotic heart disease of native coronary artery without angina pectoris; I42.9 Cardiomyopathy, unspecified; Z77.22 Contact with and (suspected) exposure to environmental tobacco smoke (acute) (chronic); Z79.899 Other long term (current) drug therapy; Z79.82 Long term (current) use of aspirin; Z88.5 Allergy status to narcotic agent; Z88.8 Allergy status to other drugs, medicaments and biological substances; Z80.9 Family history of malignant neoplasm, unspecified
CPT/HCPCS: 96366 ×3; 96376; 96365; 96375; 99291; 36415; 93005; 93306; 83880; 80061; 80053; 83735; 84484 ×2; 85025 ×2; 85610; 85730 ×2; 71046; 71275; G0378 ×2; J1644 ×2; J1940; Q9967

== ENCOUNTER → 2020-04-28 | Outpatient (CLI) | payer MEDICARE, BC ==
[2020-04-28 08:07] LABS: Basophils % (A) 1 %; Eosinophils # (A) 0.3 k/uL (0-0.7); Eosinophils % (A) 5 %; HCT 40.1 % (34.0-46.0); Lymphocytes % (A) 21 %; MCH 28.9 pg (25.0-35.0); MCHC 32.3 g/dL (31.0-37.0); MCV 89.5 fL (80.0-100.0); Mean Platelet Volume 8.7; Monocytes # (A) 0.3 k/uL (0-1.0); Monocytes % (A) 7 %; Neutrophils # (A) 3.1 k/uL (1.3-7.7); Neutrophils % (A) 64 %; Platelet Count 182 k/uL (150-450); RBC 4.49 m/uL (3.80-5.40); RDW 13.1 % (11.5-15.5); WBC 4.8 k/uL (3.8-10.6)
[2020-04-28 08:12] LABS: Appearance,Urine Clear (Clear); Bilirubin,Urine Negative (Negative); Blood,Urine Negative (Negative); Color,Urine Yellow; Glucose,Urine (UA) Negative (Negative); Ketones,Urine Negative (Negative); Leukocyte Esterase,Urine Trace (Negative); Mucus,Urine Rare /hpf; Nitrite,Urine Negative (Negative); Protein,Urine Negative (Negative); RBC,Urine 1 /hpf (0-5); Specific Gravity,Urine 1.015 (1.001-1.035); Squamous Epithelial Cell,Urine 2 /hpf (0-4); Urobilinogen,Urine <2.0 mg/dL (<2.0); WBC,Urine 1 /hpf (0-5)
[2020-04-28 08:18] LABS: INR 0.9 (<1.2); Partial Thromboplastin Time 23.9 sec (22.0-30.0); Prothrombin Time 9.5 sec (9.0-12.0)
[2020-04-28 08:19] LABS: Calcium 9.6 mg/dL (8.4-10.2); Potassium 3.6 mmol/L (3.5-5.1)
--- NOTE | 2020-04-28 08:23 | XR ---
EXAMINATION TYPE: XR chest 2V DATE OF EXAM: 04/28/2020 COMPARISON: Chest x-ray and CTA chest October 22, 2018. HISTORY: Cervical stenosis. Presurgical study. TECHNIQUE: Frontal and lateral views of the chest are obtained. FINDINGS: There is some chronic change without suspicious new focal air space opacity, pleural effus ion, or pneumothorax seen bilaterally. The cardiac silhouette size remains within normal limits. T he osseous structures are intact. There is redemonstration of of moderate to large size hiatal hernia . IMPRESSION: Chronic changes without new acute pulmonary process.
== END | disposition home or self-care (01) ==
LOC: LABPAT 07:35
PROVIDERS: ATTEND Orthopaedic Surgery Orthopaedic Surgery of the Spine
DX: Z01.818 Encounter for other preprocedural examination (principal); M48.02 Spinal stenosis, cervical region; R91.8 Other nonspecific abnormal finding of lung field
CPT/HCPCS: 36415; 71046; 80048; 81001; 85025; 85610; 85730

== ENCOUNTER 2020-05-02 11:06 | Observation (INO) | payer MEDICARE, BC ==
[2020-04-26 14:59] VITALS: BMI 24.3
[~2020-05-02 11:06] MED LIST: DEXAMETHASONE SOD PHOSPHATE 10 MG/ML 1 ML VIAL IV ONE; HYDROmorphone 0.5 MG/0.5 ML SYRINGE IVP PRN; ONDANSETRON 4 MG/2 ML VIAL IVP ONE; ceFAZolin 1,000 MG in SODIUM CHLORIDE 0.9% IRRIGATIO 1,000 ML IRRIGATION ONE
[2020-05-02] MEDS ORDERED: LIDOCAINE 1% (10MG/ML) FOR IV START INTRADERMA ONE (11:50)
[2020-05-02] MEDS: LACTATED RINGERS 1,000 ML IV SCH (11:50)
[2020-05-02] MEDS ORDERED: LIDOCAINE 1% INJ 10MG/ML (20 ML MDV) ONE (12:42)
[2020-05-02] MEDS ORDERED: fentaNYL (PF) 50 MCG/ML 2 ML AMP ONE (12:42)
[2020-05-02] MEDS ORDERED: ePHEDrine SULFATE/0.9% NACL/PF 50 MG/5 ML SYRINGE IV ONE (12:42)
[2020-05-02] MEDS ORDERED: MIDAZOLAM 2 MG/2 ML VIAL ONE (12:42)
[2020-05-02] MEDS ORDERED: DEXAMETHASONE SOD PHOSPHATE 10 MG/ML 1 ML VIAL ONE (12:42)
[2020-05-02] MEDS ORDERED: SUCCINYLCHOLINE CHLORIDE 100 MG/5 ML SYR IV ONE (12:42)
[2020-05-02] MEDS ORDERED: HYDROmorphone (PF) 1 MG/ML ONE (12:42)
[2020-05-02] MEDS ORDERED: PROPOFOL 10 MG/ML 20 ML VIAL IV ONE (12:42)
[2020-05-02] MEDS ORDERED: LIDOCAINE 2%-EPI 1:100,000 20 ML VIAL SQ ONE (13:55)
[2020-05-02] MEDS ORDERED: GELATIN SPONGE,ABSORB (LARGE) 1 EACH SPONGE MISCELLANE ONE (13:55)
[2020-05-02] MEDS ORDERED: THROMBIN (BOVINE) 5,000 UNIT VIAL TOPICAL ONE (13:55)
[2020-05-02] MEDS ORDERED: ceFAZolin 1,000 MG in SODIUM CHLORIDE 0.9% 1,000 ML IRRIGATION ONE (14:00)
[2020-05-02] MEDS ORDERED: LACTATED RINGERS 1,000 ML IV ONE ×3 (14:01→15:29)
--- NOTE | 2020-05-02 15:07 | XR ---
EXAMINATION TYPE: XR cervical spine 1V DATE OF EXAM: 05/02/2020 TECHNIQUE: Portable crosstable view of the cervical spine obtained HISTORY: Needle Placement COMPARISON: None FINDINGS: The cervical spine is visualized in its entirety from C1 thru the bottom of C7 level. Need le is seen at the level of the C5-C6 disc interspace. Patient is intubated. IMPRESSION: Needle at the level of the C5-C6 disc interspace.
[2020-05-02] MEDS ORDERED: ACETAMINOPHEN TAB 325 MG TAB PO PRN (15:16)
[2020-05-02] MEDS ORDERED: MAGNESIUM HYDROXIDE 2,400 MG/10 ML CUP PO PRN (15:16)
[2020-05-02] MEDS ORDERED: SENNOSIDES-DOCUSATE SODIUM 1 EACH TAB PO PRN (15:16)
[2020-05-02] MEDS ORDERED: HYDROmorphone 0.5 MG/0.5 ML SYRINGE IVP PRN (15:16)
[2020-05-02] MEDS ORDERED: HYDROcodone/APAP 5-325MG 1 EACH TAB PO PRN (15:16)
--- NOTE | 2020-05-02 15:19 | XR ---
EXAMINATION TYPE: XR cervical spine 1V DATE OF EXAM: 05/02/2020 CLINICAL HISTORY: Screw placement TECHNIQUE: Crosstable lateral view of the cervical spine. COMPARISON: None. FINDINGS: Postoperative changes of fusion extending from C3 through C6 with anterior fixation plate a nd intervertebral body spacers in place. Cervical alignment is anatomic. IMPRESSION: Appropriate postoperative alignment.
--- NOTE | 2020-05-02 15:23 | P.OP ---
Date of Procedure: 05/02/20 Preoperative Diagnosis: Cervical stenosis C3 4 C4 5 C5 6, spondylolisthesis C3 4, degenerative disc disease, herniated nucleus pulposis C34 C4 5 C5 6, upper extremity radiculopathy, upper extremity weakness, neck pain Postoperative Diagnosis: Same Anesthesia: GETA Pathology: none sent Condition: stable Disposition: PACU Operative Findings: BRIEF OPERATIVE NOTE Preoperative Diagnosis:Cervical stenosis C3 4 C4 5 C5 6, spondylolisthesis C3 4, degenerative disc disease, herniated nucleus pulposis C34 C4 5 C5 6, upper extremity radiculopathy, upper extremity weakness, neck pain Postoperative Diagnosis: Same Procedure: Anterior cervical decompression and fusion C3 4 C4 5 C5 6 Placement of interbody graft C3 4 C4 5 C5 6 Application of anterior cervical plate C3 4 5 and 6 Surgeon: Dr. Rodriguez Chart Reader: Eddie Horan is present throughout the entire the case persistence during positioning, dissection, exposure, visualization, and all crucial elements of the case as well as closure. Anesthesia: General anesthesia per Dr. Allan Estimated blood loss: Approximately 100 mL Complications: None apparent Components implanted: K2M [place] anterior cervical plate system with because interbody allograft bone graft and 1 mL of DBX bone putty Disposition: To recovery room in good stable condition. OPERATIVE INDICATIONS The patient has had long-standing issues in their neck and upper extremities. She's been having severe worsening of her neck and her upper extremities over the past couple of months. She has been having severe radicular symptoms in her upper extremities and neck pain which is becoming somewhat debilitating for her and she is significantly decreased her regular activities due to her neck and u pper extremity issues. The patient has been through conservative treatment. Her imaging correlated well with her symptoms with findings of significant stenosis and spondylolisthesis as well as disc degeneration and herniated disc at her cervical spine. We discussed various treatment options including surgery, and the patient wishes to proceed with surgery We discussed the risk, patient's alternatives and benefits of surgery including but not limited to, risk of bleeding risk of infection, risk of need for further surgery, risk of decreased, loss of motion, muscle function, malunion nonunion, hardware failure, nerve damage, paralysis, heart attack, and . OPERATIVE SUMMARY After discussing all the risks, patient alternatives and benefits at length, the patient elected to proceed with surgical intervention, signed informed consent, and presented for their procedure. The patient was seen and examined in the preoperative holding area and the surgical site was marked. The patient was given antibiotics and brought to the operating room. The patient was positioned on the operating room table in a supine position being careful to pad any bony prominences and pressure points. The patient was sedated and intubated by anesthesia in standard fashion. Once the airway and C- spine were stabilized the patient's arms were padded and tucked at her side, with her shoulders gently taped. The head was placed in a donut pad with the neck in good neutral alignment and position. We were careful to maintain the patient's cervical spine and good neutral alignment and position throughout. The patient was prepped and draped in a normal standard fashion. An appropriate timeout and keystone protocol performed. We were able to proceed with the surgery. The local wound area was infiltrated with local anesthetic. An incision was made transversely approximately 2-1/2 cm over the appropriate levels at C5. Dissection was taken down subcutaneously to the level of the platysma which was split in line with its fibers. Dissection was taken with a carotid approach, with the trachea and esophagus medial and the carotid sheath laterally. We dissected down to the anterior surface of the vertebral bodies. Intraoperative x-ray was taken which showed a marker at the appropriate level of C5 6. With the appropriate level positively confirmed, we were able to proceed with discectomy at the appropriate levels starting at C5 6 and then moving to C4 5 and then to C3 4. All of the operative levels were exposed appropriately. The patient had all their twitches back, and there was no evidence of recurrent laryngeal issue. The wound was copiously irrigated and suctioned dry as had been done periodically throughout the case. At the appropriate level/levels, I established an annulotomy with an 11 blade scalpel. A discectomy was performed with a combination of pituitary rongeurs, curettes, a high-speed bur, and Kerrison rongeurs. There is severe disc degeneration and severe disc loss adhesive the levels. The posterior longitudinal ligament was taken down as were any posterior osteophytes. This gave good central and bilateral foraminal decompression. There is no evidence of any dural tear or leak. The endplates were prepared with a high-speed bur. With the endplates in good parallel position, I was able to size for the appropriate size interbody graft. The woun d was irrigated and suctioned dry the graft was prepared and malleted into position. There is noted to be listhesis at C3 4 which were able to reduce. It had good alignment and position with the anterior surface flush with the anterior surface of the vertebral bodies. This was done similarly the appropriate levels. With the grafts intact, I was able to measure and contour and appropriate sized plate. The plate was positioned at the midline over the appropriate levels from C3 to C6. Screw holes were established with a hand drill and drill guide. Screws were placed in good alignment and position with excellent bony purchase. We had good positioning of the listhesis as well as the vertebral bodies from C3 to C6. They were seated under the locking device. The construct was checked an d found to be stable. Intraoperative x-ray was taken which showed good alignment and position of the implants at the appropriate levels. There was no evidence of any dural tear or leak. Good hemostasis was maintained. The wound was copiously irrigated and suctioned dry as had been done periodically throughout the case. The platysma was closed with absorbable suture. The subcutaneous tissue was closed. The subcuticular tissue was closed with absorbable suture. The wound was cleaned and dried and dressed appropriately. A soft cervical collar was placed appropriately. The patient was woken up by anesthesia, extubated, transferred back gently to their hospital bed and brought to the recovery room in good stable condition. The patient will be admitted to the hospital for appropriate postoperative care, medical management and monitoring. We will continue to follow them closely about the postoperative course.
[2020-05-02] MEDS: ONDANSETRON 4 MG/2 ML VIAL IVP PRN ×2 (16:41→23:59)
[2020-05-02] MEDS: PANTOPRAZOLE 40 MG TABLET PO SCH (17:36)
[2020-05-02] MEDS: SODIUM CHLORIDE 0.9% 1,000 ML IV SCH (17:37)
[2020-05-02] MEDS: HYDROmorphone 1 MG/ML 1 ML SYRINGE IVP PRN (19:30)
[2020-05-02] MEDS: PREGABALIN 100 MG CAP PO SCH (21:06)
[2020-05-03] MEDS: HYDROmorphone 1 MG/ML 1 ML SYRINGE IVP PRN ×2 (04:51)
[2020-05-03] MEDS: SODIUM CHLORIDE 0.9% 1,000 ML IV SCH (05:04)
[2020-05-03] MEDS: LACTATED RINGERS 1,000 ML IV SCH (07:44)
[2020-05-03] MEDS: PANTOPRAZOLE 40 MG TABLET PO SCH (08:33)
[2020-05-03] MEDS: PREGABALIN 100 MG CAP PO SCH (08:33)
[2020-05-03] MEDS ORDERED: SENNOSIDES-DOCUSATE SODIUM 1 EACH TAB PO SCH (09:00)
[2020-05-03] MEDS ORDERED: CHOLECALCIFEROL 1,000 UNIT TAB PO SCH (09:00)
[2020-05-03] MEDS ORDERED: CALCIUM CARB-VIT D 500MG-200UN 1 EACH TAB PO SCH (09:00)
[2020-05-03] MEDS ORDERED: CYANOCOBALAMIN 500 MCG TAB PO SCH (09:00)
[2020-05-03] MEDS ORDERED: TRIAMTERENE-HCTZ 37.5-25MG 1 EACH CAP PO SCH (09:00)
[2020-05-03] MEDS ORDERED: ASPIRIN 81 MG PO SCH (09:00)
[2020-05-03] MEDS: BENZOCAINE/MENTHOL LOZENG 1 EACH LOZENGE MUCOUS MEM PRN ×2 (09:48)
[2020-05-03 11:52] VITALS: BP 135/76; PULSE 86; RESP 17; TEMP 97.5
[2020-05-03] MEDS ORDERED: BACLOFEN 10 MG TAB PO PRN (12:31)
--- NOTE | 2020-05-03 12:45 | P.DS ---
Providers Date of admission: 05/03/20 11:31 Expected date of discharge: 05/03/20 Attending physician: Tyler Rodriguez Primary care physician: Bakari Jack - Discharge Diagnosis(es) (1) Cervical stenosis of spinal canal Current Visit: Yes Status: Acute (2) Status post cervical spinal fusion Current Visit: Yes Status: Acute (3) Cervicalgia Current Visit: Yes Status: Acute (4) Degenerative cervical disc Current Visit: Yes Status: Acute (5) Upper extremity weakness Current Visit: Yes Status: Acute (6) Radiculopathy affecting upper extremity Current Visit: Yes Status: Acute (7) Heart disease Current Visit: Yes Status: Acute (8) Cervical paraspinal muscle spasm Current Visit: Yes Status: Acute (9) Fibromyalgia Current Visit: No Status: Acute (10) Hypertension Current Visit: No Status: Acute (11) Neuropathy Current Visit: No Status: Acute Hospital Course: This is a pleasant 69-year-old female who presented with C3-4, C4-5, and C5-6 cervical spinal stenosis, herniated nucleus pulposus, and degenerative disc disease, C3-4 spondylolisthesis, upper extremity weakness and radiculopathy, and cervical pain who failed outpatient conservative therapy. She was admitted for a C3-4, C4-5, and C5-6 anterior cervical decompression and fusion. The patient tolerated the procedure well and has been doing okay postoperatively. She denies any difficulty with swallowing or urination. She is not experiencing a sore throat. She states her most significant pain is spasm over the left trapezius with some pain towards the left shoulder. She has previously taken baclofen in the outpatient setting for muscle spasm which which has helped improve her symptoms. She does admit to a little bit of a headache today. She states she is avoiding narcotic pain medications as she would like to be discharged home today. She states Tylenol has helped her headaches in the past. Patient states she does feel she would be ready for discharge home today and prefers to be discharged home today if the pain over the left trapezius towards her shoulder does have some improvement. We discussed we will add baclofen 10 mg as needed for muscle spasm 3 times a day while she remains admitted to the hospital and she has taken this medication outpatient setting with improvement of her symptoms. If the patient is able to have better control of her symptoms and her pain is well-controlled oral medication, we'll plan for discharge home today. Condition on day of discharge stable. Patient will be discharged home. Patient was cleared preoperatively for surgery by Dr. Jack. Patient currently denies any nausea, vomiting, fever, or chills. Patient is eating and voiding freely without difficulty. Patient may shower Optifoam dressing intact. Patient may remove Optifoam dressing in 3 days and shower without a dressing at that time. Patient may wear her soft cervical collar for comfort support as needed. Patient should refrain from driving until at least after their first follow-up appointment in the office. Patient should avoid excessive neck fle xion, extension, rotation, and lateral sidebending; no overhead lifting; no lifting greater than 10 pounds. Patient states she does take Lortab 10 mg/325 mg in the outpatient setting and has enough of this medication at home. She does not wish for a new prescription for narcotic pain medication. She states she has taken baclofen previously the outpatient setting was some control of her muscle spasms symptoms. She is given a prescription for baclofen 10 mg 1 tab 3 times a day as needed for muscle spasm, dispensed #60. Patient should avoid anti-inflammatory medications postoperatively over the next 6 weeks including Celebrex and Motrin. She may resume other previously prescribed home medications. Patient's past medical history does include hypertension, fibromyalgia, neuropathy, hyperlipidemia, and heart disease. 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[employer] strength, thumb strength, interosseous strength, biceps strength, triceps strength, and shoulder strength positive sustained bilaterally Soft cervical collar intact Patient does have evidence of significant spasm over the left trapezius Some pain palpation of the left trapezius Incision is clean, dry, and intact; no erythema, purulence, or signs of infection Optifoam dressing and non-stick Telfa intact Procedures: C3-4, C4-5, and C5-6 anterior cervical decompression and fusion Patient Condition at Discharge: Stable Plan - Discharge Summary Discharge Rx Participant: Yes New Discharge Prescriptions: New Baclofen 10 mg PO TID PRN #30 tab PRN Reason: Spasms No Action rOPINIRole HCL [rOPINIRole HCL ER] 2 mg PO BID Lansoprazole [Prevacid] 30 mg PO BID Cyanocobalamin (Vitamin B-12) [Vitamin B-12] 1,000 mcg PO DIRECTED Calcium Carbonate [Calcium] 600 mg PO DAILY Aspirin 81 mg PO DAILY #30 chew Cholecalciferol [Vitamin D3 (25 Mcg = 1000 Iu)] 2,000 unit PO DAILY Ibuprofen [Motrin] 800 mg PO Q8H PRN PRN Reason: Pain Celecoxib [CeleBREX] 200 mg PO DAILY Pregabalin [Lyrica] 300 mg PO BID Triamterene-Hctz 37.5-25Mg [Dyazide 37.5-25 Capsule] 1 cap PO DAILY Lortab Tablet 10 - 325 tab PO QID PRN PRN Reason: Pain Discharge Medication List Lansoprazole [Prevacid] 30 mg PO BID 01/22/16 [History] rOPINIRole HCL [rOPINIRole HCL ER] 2 mg PO BID 01/22/16 [History] Calcium Carbonate [Calcium] 600 mg PO DAILY 07/29/18 [History] Cyanocobalamin (Vitamin B-12) [Vitamin B-12] 1,000 mcg PO DIRECTED 07/29/18 [History] Aspirin 81 mg PO DAILY #30 chew 07/30/18 [Rx] Celecoxib [CeleBREX] 200 mg PO DAILY 04/26/20 [History] Cholecalciferol [Vitamin D3 (25 Mcg = 1000 Iu)] 2,000 unit PO DAILY 04/26/20 [History] Ibuprofen [Motrin] 800 mg PO Q8H PRN 04/26/20 [History] Lortab Tablet 10 - 325 tab PO QID PRN 04/26/20 [History] Pregabalin [Lyrica] 300 mg PO BID 04/26/20 [History] Triamterene-Hctz 37.5-25Mg [Dyazide 37.5-25 Capsule] 1 cap PO DAILY 04/26/20 [History] Baclofen 10 mg PO TID PRN #30 tab 05/03/20 [Rx] Follow up Appointment(s)/Referral(s): Eddie Montalvo, SELINA [PHYSICIAN GOLF TECHNICIAN] - 1 Week (Patient may follow-up with Eddie Montalvo PA-C or Dr. Dejan Rodriguez at [facility] in 2-3 weeks following discharge. ) Activity/Diet/Wound Care/Special Instructions: 1. Patient may shower with Optifoam dressing intact. 2. Patient may remove Optifoam dressing in 3 days and shower without a dressing at that time. 3. Patient should refrain from driving until at least after their first follow- up appointment in the office. 4. Patient may wear soft cervical collar for comfort support as needed. 5. Patient should avoid excessive bending, twisting, and lifting; no lifting greater than 10 pounds 6. Take medications as prescribed 7. Do not soak in tub Discharge Disposition: HOME SELF-CARE
== END 2020-05-03 15:33 | disposition home or self-care (01) ==
LOC: OR 11:06 → 6NMEDSUR 16:14 → OR 05-03 11:31
PROVIDERS: ADMIT Orthopaedic Surgery Orthopaedic Surgery of the Spine; ATTEND Orthopaedic Surgery Orthopaedic Surgery of the Spine
DX: M48.02 Spinal stenosis, cervical region (principal); M43.12 Spondylolisthesis, cervical region; M50.122 Cervical disc disorder at C5-C6 level with radiculopathy; M50.222 Other cervical disc displacement at C5-C6 level; M50.221 Other cervical disc displacement at C4-C5 level; M50.30 Other cervical disc degeneration, unspecified cervical region; M62.838 Other muscle spasm; M79.7 Fibromyalgia; I10 Essential (primary) hypertension; G62.9 Polyneuropathy, unspecified; R51 Headache; E78.5 Hyperlipidemia, unspecified; K30 Functional dyspepsia; M19.90 Unspecified osteoarthritis, unspecified site; G25.81 Restless legs syndrome; I25.2 Old myocardial infarction; I25.10 Atherosclerotic heart disease of native coronary artery without angina pectoris; Z79.899 Other long term (current) drug therapy; Z79.1 Long term (current) use of non-steroidal anti-inflammatories (NSAID); Z79.82 Long term (current) use of aspirin; Z88.8 Allergy status to other drugs, medicaments and biological substances; Z88.5 Allergy status to narcotic agent; Z82.49 Family history of ischemic heart disease and other diseases of the circulatory system; Z90.49 Acquired absence of other specified parts of digestive tract; Z90.710 Acquired absence of both cervix and uterus; Z79.891 Long term (current) use of opiate analgesic; Z98.1 Arthrodesis status; M25.551 Pain in right hip; K21.9 Gastro-esophageal reflux disease without esophagitis; R73.03 Prediabetes; E55.9 Vitamin D deficiency, unspecified; G89.4 Chronic pain syndrome; F32.9 Major depressive disorder, single episode, unspecified; Z87.19 Personal history of other diseases of the digestive system; M19.072 Primary osteoarthritis, left ankle and foot; M21.40 Flat foot [pes planus] (acquired), unspecified foot
CPT/HCPCS: 22551; 22552 ×2; 22845; 20930; 72020; G0378; C1713 ×2; C1762 ×2; J2250; J1100; J0690 ×3; J2405; J2001; J3010; J1170 ×3; J0330; J2704; 86850; 86900; 86901

== ENCOUNTER 2020-05-15 14:00 | Emergency (ER) | payer MEDICARE, BC ==
[2020-05-15 14:13] VITALS: TEMP 98.2
[2020-05-15] MEDS ORDERED: HYDROmorphone 0.5 MG/0.5 ML SYRINGE IVP STA (14:35)
[2020-05-15] MEDS ORDERED: SODIUM CHLORIDE 0.9% 1,000 ML IV STA (14:35)
[2020-05-15 15:08] LABS: Basophils % (A) 1 %; Eosinophils # (A) 0.3 k/uL (0-0.7); Eosinophils % (A) 4 %; HCT 35.5 % (34.0-46.0); HGB 12.2 gm/dL (11.4-16.0); Lymphocytes # (A) 1.4 k/uL (1.0-4.8); Lymphocytes % (A) 19 %; MCHC 34.3 g/dL (31.0-37.0); MCV 87.4 fL (80.0-100.0); Mean Platelet Volume 7.5; Monocytes # (A) 0.3 k/uL (0-1.0); Monocytes % (A) 5 %; Neutrophils % (A) 71 %; Platelet Count 260 k/uL (150-450); RBC 4.06 m/uL (3.80-5.40); RDW 13.3 % (11.5-15.5); WBC 7.1 k/uL (3.8-10.6)
[2020-05-15 15:09] LABS: Potassium 3.9 mmol/L (3.5-5.1); Total Protein 6.2 g/dL (6.3-8.2)
[2020-05-15 15:11] LABS: Calcium 9.3 mg/dL (8.4-10.2); Magnesium 2.1 mg/dL (1.6-2.3); Total Bilirubin 0.3 mg/dL (0.2-1.3)
[2020-05-15 15:17] LABS: INR 0.9 (<1.2); Prothrombin Time 9.5 sec (9.0-12.0)
--- NOTE | 2020-05-15 15:37 | CT ---
EXAMINATION TYPE: CT brain meghna montero con DATE OF EXAM: 05/15/2020 COMPARISON: CT brain 12/23/2016 HISTORY: Headache, neck pain and vomiting post cervical fusion x3 weeks ago. CT DLP: 1243.8 mGycm Automated exposure control for dose reduction was used. Ventricles have normal size. There is no mass effect nor midline shift. There is no sign of intracran ial hemorrhage. The calvarium is intact. There is no evidence of cerebral edema. Cervical vertebra have normal alignment. There is anterior fusion surgery from C3 to C6. There is a m inimal anterior subluxation of C7 in relation to T1 of 3 mm. The posterior elements are intact. Facet joints are intact. Skull base is intact. There is normal aeration of the mastoid sinuses. I see no f ocal bone destruction. There is some scarring at the lung apices. IMPRESSION: Negative CT scan of the brain. No change. Multilevel cervical spine fusion surgery. No fracture seen.
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
[2020-05-15] MEDS ORDERED: ONDANSETRON 4 MG/2 ML VIAL IVP STA (15:42)
--- NOTE | 2020-05-15 15:56 | XR ---
EXAMINATION TYPE: XR chest 2V DATE OF EXAM: 05/15/2020 COMPARISON: 04/28/2020 HISTORY: Chest pain TECHNIQUE: FINDINGS: There is a large hiatal hernia. Heart size is normal. There is no heart failure. Lungs are clear of consolidation. Bony thorax is intact. IMPRESSION: No active cardiopulmonary disease. Large hiatal hernia unchanged.
[2020-05-15 16:34] VITALS: BP 130/88; PULSE 72; RESP 18
== END 2020-05-15 16:43 | disposition home or self-care (01) ==
LOC: EC 14:00
DX: M62.830 Muscle spasm of back (principal); K21.9 Gastro-esophageal reflux disease without esophagitis; K44.9 Diaphragmatic hernia without obstruction or gangrene; G25.81 Restless legs syndrome; M19.90 Unspecified osteoarthritis, unspecified site; I25.2 Old myocardial infarction; Z79.899 Other long term (current) drug therapy; Z79.1 Long term (current) use of non-steroidal anti-inflammatories (NSAID); Z98.1 Arthrodesis status; Z88.5 Allergy status to narcotic agent; Z88.6 Allergy status to analgesic agent; Z88.8 Allergy status to other drugs, medicaments and biological substances
CPT/HCPCS: 36415; 93005; 83880; 80053; 82550; 83735; 84484; 85025; 85610; 85730; 71046; 72125; 70450; 99285; 96374; 96375; 96361; J2405; J1170

== ENCOUNTER 2020-09-12 19:51 | Inpatient (IN) | payer MEDICARE, BC ==
[2020-09-12 20:52] LABS: Basophils # (A) 0.1 k/uL (0-0.2); Basophils % (A) 1 %; Eosinophils # (A) 0.1 k/uL (0-0.7); Eosinophils % (A) 1 %; HGB 13.1 gm/dL (11.4-16.0); Lymphocytes # (A) 1.5 k/uL (1.0-4.8); Lymphocytes % (A) 24 %; MCH 30.2 pg (25.0-35.0); MCHC 35.3 g/dL (31.0-37.0); MCV 85.4 fL (80.0-100.0); Mean Platelet Volume 8.4; Monocytes # (A) 0.5 k/uL (0-1.0); Monocytes % (A) 8 %; Neutrophils # (A) 3.9 k/uL (1.3-7.7); Neutrophils % (A) 63 %; Platelet Count 184 k/uL (150-450); RBC 4.33 m/uL (3.80-5.40); RDW 13.1 % (11.5-15.5); WBC 6.2 k/uL (3.8-10.6)
[2020-09-12 20:59] LABS: Appearance,Urine Cloudy (Clear); Bilirubin,Urine 1+ (Negative); Blood,Urine Trace (Negative); Color,Urine Yellow; Glucose,Urine (UA) Negative (Negative); Hyaline Casts,Urine 3 /lpf (0-2); Ketones,Urine Negative (Negative); Leukocyte Esterase,Urine Moderate (Negative); Mucus,Urine Many /hpf; Nitrite,Urine Negative (Negative); Protein,Urine 1+ (Negative); RBC,Urine 3 /hpf (0-5); Specific Gravity,Urine 1.035 (1.001-1.035); Squamous Epithelial Cell,Urine 6 /hpf (0-4); Urobilinogen,Urine <2.0 mg/dL (<2.0); WBC,Urine 6 /hpf (0-5)
[2020-09-12 21:05] LABS: Albumin 4.2 g/dL (3.5-5.0); Calcium 9.4 mg/dL (8.4-10.2); Potassium 2.9 mmol/L (3.5-5.1); Total Bilirubin 0.4 mg/dL (0.2-1.3); Total Protein 6.7 g/dL (6.3-8.2)
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
--- NOTE | 2020-09-12 21:47 | CT ---
EXAMINATION TYPE: CT abdomen pelvis w con DATE OF EXAM: 09/12/2020 COMPARISON: None HISTORY: Diarrhea and left sided abdominal pain x6 days. CT DLP: 877.5 mGycm Automated exposure control for dose reduction was used. CONTRAST: Performed with IV Contrast, patient injected with 100ml mL of Isovue 300. Images were obtained from the diaphragm to the floor the pelvis with IV contrast. Lung bases are clear of infiltrate. There is large hiatal hernia. Heart appears normal. There is no p ericardial effusion. Liver has normal size. There are multiple small hepatic cysts that measure up to 1.5 cm. The bile ducts are not dilated. Gallbladder appears normal. Spleen is intact. There is no pa ncreatic mass. There is no adrenal mass. Kidneys have normal size and contour. There is no hydronephrosis. There is 4.6 cm cortical cyst lateral right kidney. There is no evidence of solid renal mass. Ureters are not dilated. There is no retroperitoneal adenopathy. Bladder is empty. There is no inguinal hernia. There is hysterectomy. There is no evidence of a pelvic mass. There are numerous diverticula of the sigmoi d colon. There is minimal fat stranding around the mid sigmoid colon. Appendix is not seen. There is no sign of thickened appendix. There is no ascites or free air. There is no bowel obstruction. There are some mildly distended small bowel loops with fluid. This could relate to minimal ileus. There is large bowel fluid levels extend ing to the sigmoid colon. There is a first-degree L4-5 spondylolisthesis. There is posterior fusion surgery at L4-5. There is n o lumbar compression fracture. IMPRESSION: Sigmoid diverticulosis. Mild focal inflammation of the mid sigmoid colon consistent with mild diverti culitis. L4-5 first-degree spondylolisthesis. Mild small bowel ileus. Large bowel fluid levels suggestive of some diarrhea.
[2020-09-12] MEDS ORDERED: POTASSIUM CHLORIDE ER 20 MEQ TAB.ER PO STA (21:55)
[2020-09-12] MEDS ORDERED: POTASSIUM CHLORIDE 10 MEQ in WATER FOR INJECTION 1 100ML.BAG IVPB STA (21:55)
[2020-09-12] MEDS ORDERED: SODIUM CHLORIDE 0.9% 500 ML 500 ML IV ONE (21:56)
[2020-09-12] MEDS: SODIUM CHLORIDE 0.9% 1,000 ML IV SCH (22:07)
[2020-09-12] MEDS ORDERED: NALOXONE 0.4 MG/ML 1 ML VIAL IV PRN (22:12)
[2020-09-12] MEDS: metroNIDAZOLE 500 MG TAB PO SCH (22:44)
[2020-09-12] MEDS: HYDROcodone/APAP 10-325MG 1 EACH TAB PO PRN (22:44)
[2020-09-12] MEDS: CIPROFLOXACIN HCL 500 MG TAB PO SCH (22:44)
[2020-09-13] MEDS ORDERED: HYDROmorphone 0.2 MG/1 ML SYRINGE IVP PRN (01:04)
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
[2020-09-13] MEDS: HYDROcodone/APAP 10-325MG 1 EACH TAB PO PRN ×3 (02:25→18:23)
[2020-09-13] MEDS: PREGABALIN 100 MG CAP PO SCH ×3 (02:25→21:23)
[2020-09-13] MEDS: SODIUM CHLORIDE 0.9% 1,000 ML IV SCH ×2 (06:05→12:41)
[2020-09-13 06:35] LABS: Basophils % (A) 0 %; Eosinophils # (A) 0.1 k/uL (0-0.7); Eosinophils % (A) 2 %; HCT 33.2 % (34.0-46.0); HGB 11.1 gm/dL (11.4-16.0); Lymphocytes # (A) 1.3 k/uL (1.0-4.8); Lymphocytes % (A) 24 %; MCH 28.8 pg (25.0-35.0); MCHC 33.3 g/dL (31.0-37.0); MCV 86.4 fL (80.0-100.0); Mean Platelet Volume 8.2; Monocytes # (A) 0.5 k/uL (0-1.0); Monocytes % (A) 9 %; Neutrophils # (A) 3.4 k/uL (1.3-7.7); Neutrophils % (A) 62 %; Platelet Count 151 k/uL (150-450); RBC 3.84 m/uL (3.80-5.40); RDW 13.2 % (11.5-15.5); WBC 5.4 k/uL (3.8-10.6)
[2020-09-13] MEDS: HEPARIN SODIUM,PORCINE 5,000 UNIT/ML 1 ML VIAL SQ SCH ×2 (08:15→16:21)
[2020-09-13] MEDS: PANTOPRAZOLE 40 MG TABLET PO SCH ×2 (08:15→17:27)
[2020-09-13] MEDS: metroNIDAZOLE 500 MG TAB PO SCH ×3 (08:15→22:41)
[2020-09-13] MEDS: CIPROFLOXACIN HCL 500 MG TAB PO SCH ×2 (08:15→22:41)
--- NOTE | 2020-09-13 08:29 | US ---
EXAMINATION TYPE: US abdomen limited DATE OF EXAM: 09/13/2020 COMPARISON: Correlation CT 09/12/2020 CLINICAL HISTORY: 70-year-old female question gallstones, slightly elevated lipase. TECHNIQUE: Multiple sonographic images of the right upper quadrant are obtained. FINDINGS: EXAM MEASUREMENTS: Liver Length: 11.3 x 4.8 x 4.9 cm Gallbladder Wall: 0.2 cm CBD: 7.6 mm Right Kidney: 11.3 x 4.8 x 4.9 cm Pancreas: Only small portions of the pancreatic body and neck are visualized. Remainder is obscured by bowel gas shadowing. Liver: liver cysts noted, largest measuring 2.3 x 1.9 x 2.4cm there is no obvious stone within inte rnal septations. Gallbladder: Portable and hydropic measuring 10 cm long. No wall thickening, shadowing calculi, or holman rrounding fluid. Evidence for sonographic Stanley's sign: no CBD: Borderline dilated for patient's age. Right Kidney: No hydronephrosis. There is a benign cyst measuring 4.9 x 4.1 x 4.3cm IMPRESSION: 1. The bile duct is borderline dilated for patient's age at 7.6 mm. Correlate with alkaline phosphata se and bilirubin levels to exclude early biliary obstruction 2. Borderline hydropic gallbladder. Again, correlation with alkaline phosphatase and bilirubin levels can exclude dilatation from biliary obstruction. More commonly, this can be associated with fasting state. No gallstones or ancillary findings of acute cholecystitis. 3. Suboptimal visualization of the pancreas.
[2020-09-13 09:30] LABS: African American GFR (CKD) 75.6 (60.0-200.0); Albumin 3.7 g/dL (3.80-4.90); Albumin/Globulin Ratio 3.08 (1.60-3.17); Anion Gap 6.8 mmol/L (4.00-12.00); BUN/Creat Ratio 24.44 Ratio (12.00-20.00); Calcium 8.4 mg/dL (8.7-10.3); Carbon Dioxide 24.2 mmol/L (21.6-31.8); Globulin 1.2 g/dL (1.6-3.3); Non-African American GFR(CKD) 65.2 (60.0-200.0); Potassium 3.5 mmol/L (3.5-5.5); Total Bilirubin 0.2 mg/dL (0.2-1.2); Total Protein 4.9 g/dL (6.2-8.2)
--- NOTE | 2020-09-13 11:27 | P.PN ---
Subjective Progress Note Date: 09/13/20 Pt has ongoing nausea, vomiting, and diarrhea. Objective - Vital Signs Vital signs: Vital Signs Temp 97.5 F L 09/13/20 05:00 Pulse 62 09/13/20 05:00 Resp 16 09/13/20 05:00 BP 113/67 09/13/20 05:00 Pulse Ox 98 09/13/20 05:00 Intake & Output 09/12/20 09/13/20 09/13/20 18:59 06:59 18:59 Intake Total 1820 240 Balance 1820 240 Weight 68.039 kg Intake: Intake, IV Titration 1700 Amount Sodium Chloride 0.9% 1, 1200 000 ml @ 125 mls/hr IV . Q8H ELIER Rx#:[id number] Sodium Chloride 0.9% 500 500 ml 500 ml @ 999 mls/hr IV .Q31M ONE Rx#:[id number] Oral 120 240 Other: # Voids 4 # Bowel Movements 6 - Exam Gen: awake, alert HEENT: normocephalic, atraumatic, good hearing acuity, moist mucous membranes Resp: good air exchange, breathing comfortably with no accessory muscle use CVS: good distal perfusion x 4, GI: soft, NTTP, ND : no SPT, no CVAT, umanzor catheter not present MSK: no pitting edema, no clubbing Neuro: non-focal, moving all extremities Psych: cooperative, euthymic mood - Labs CBC & Chem 7: 09/13/20 05:35 09/13/20 05:35 Labs: Abnormal Lab Results - Last 24 Hours (Table) 09/12/20 09/12/20 09/13/20 Range/Units 20:45 20:45 01:41 Hgb (11.4-16.0) gm/dL Hct (34.0-46.0) % Potassium 2.9 L 3.1 L (3.5-5.1) mmol/L Chloride (96-109) mmol/L BUN 25 H (7-17) mg/dL BUN/Creatinine Ratio (12.00-20.00) Ratio Glucose 128 H (74-99) mg/dL Calcium (8.7-10.3) mg/dL Total Protein (6.2-8.2) g/dL Albumin (3.80-4.90) g/dL Globulin (1.6-3.3) g/dL Lipase 581 H (23-300) U/L Urine Appearance Cloudy H (Clear) Urine Protein 1+ H (Negative) Urine Blood Trace H (Negative) Urine Bilirubin 1+ H (Negative) Ur Leukocyte Esterase Moderate H (Negative) Urine WBC 6 H (0-5) /hpf Ur Squamous Epith Cells 6 H (0-4) /hpf Hyaline Casts 3 H (0-2) /lpf Urine Mucus Many H (None) /hpf 09/13/20 09/13/20 Range/Units 05:35 05:35 Hgb 11.1 L (11.4-16.0) gm/dL Hct 33.2 L (34.0-46.0) % Potassium (3.5-5.1) mmol/L Chloride 111 H (96-109) mmol/L BUN (7-17) mg/dL BUN/Creatinine Ratio 24.44 H (12.00-20.00) Ratio Glucose (74-99) mg/dL Calcium 8.4 L (8.7-10.3) mg/dL Total Protein 4.9 L (6.2-8.2) g/dL Albumin 3.70 L (3.80-4.90) g/dL Globulin 1.2 L (1.6-3.3) g/dL Lipase (23-300) U/L Urine Appearance (Clear) Urine Protein (Negative) Urine Blood (Negative) Urine Bilirubin (Negative) Ur Leukocyte Esterase (Negative) Urine WBC (0-5) /hpf Ur Squamous Epith Cells (0-4) /hpf Hyaline Casts (0-2) /lpf Urine Mucus (None) /hpf Microbiology - Last 24 Hours (Table) 09/13/20 00:55 Stool Culture - Preliminary Stool Assessment and Plan Assessment: Acute sigmoid diverticulitis Acute gastroenteritis secondary to above, rule out Covid, rule out C. diff Black bowel movement rule out GI bleed most likely secondary to Pepto-Bismol Hypokalemia secondary to repeated nausea vomiting and diarrhea Dehydration Plan IV fluid hydration with normal saline patient received 1 L bolus continue with 125 mL per hour Check stool for C. diff, pending Occult blood test, pending Pain control with by mouth [place] and IV Dilaudid as needed Check ultrasound of the abdomen to rule out gallstones patient has slightly elevated lipase and reporting earlier symptoms of epigastric pain radiating to the back with nausea and vomiting = has borderline biliary duct dilation, but no elevated alk phos or bilirubin to suggest obstruction at this time, outpatient follow up Follow-up lipase in a.m. = 581 (mildly elevated) Replace potassium by mouth and IV, follow-up levels, = in normal range Replace potassium as needed Bowel rest, continue with clear liquids, nausea control PRN Monitor vital signs, monitor for fever Follow-up cultures Patient started on empiric antibiotics with Cipro and Flagyl for sigmoid diverticulitis Chronic conditions History of coronary artery disease Hypertension Fibromyalgia Peripheral neuropathy Follow-up morning labs Test for Covid CODE STATUS: Full code DVT prophylaxis: Subcu 3 times a day Discussed with: Patient, ER, RN Anticipated length of stay more than [address]: Home
[2020-09-13] MEDS: FLUTICASONE 50MCG/SPRAY NASAL 16GM EA NOSTRIL SCH (21:22)
[2020-09-13] MEDS: ACETAMINOPHEN TAB 325 MG TAB PO PRN (23:00)
[2020-09-14] MEDS: SODIUM CHLORIDE 0.9% 1,000 ML IV SCH (01:21)
[2020-09-14] MEDS: HEPARIN SODIUM,PORCINE 5,000 UNIT/ML 1 ML VIAL SQ SCH ×2 (01:21→08:51)
[2020-09-14] MEDS: ACETAMINOPHEN TAB 325 MG TAB PO PRN (04:24)
[2020-09-14] MEDS: HYDROcodone/APAP 10-325MG 1 EACH TAB PO PRN (08:09)
[2020-09-14] MEDS: CIPROFLOXACIN HCL 500 MG TAB PO SCH (08:49)
[2020-09-14] MEDS: FLUTICASONE 50MCG/SPRAY NASAL 16GM EA NOSTRIL SCH (08:50)
[2020-09-14] MEDS: metroNIDAZOLE 500 MG TAB PO SCH (08:53)
[2020-09-14] MEDS: PANTOPRAZOLE 40 MG TABLET PO SCH (08:54)
[2020-09-14] MEDS: PREGABALIN 100 MG CAP PO SCH (09:20)
[2020-09-14 12:17] VITALS: BP 112/65; PULSE 65; RESP 18; TEMP 97.7
[2020-09-14] MEDS ORDERED: PREGABALIN 100 MG CAP PO SCH (16:00)
--- NOTE | 2020-09-15 14:45 | P.DS ---
Providers Date of admission: 09/14/20 08:30 Expected date of discharge: 09/14/20 Attending physician: Willem Le MD Primary care physician: Bakari Jack Hospital Course: Acute sigmoid diverticulitis Acute gastroenteritis secondary to above, rule out Covid, rule out C. diff Black bowel movement rule out GI bleed most likely secondary to Pepto-Bismol Hypokalemia secondary to repeated nausea vomiting and diarrhea Dehydration 70 year old woman who presented with abdominal pain, nausea, vomiting, and diarrhea was found to have acute sigmoid diverticulitis and acute gastroenteritis. She improved quickly with the use of antibiotics and was tolerating a diet on day of discharge. She was able to ambulate on her own, and her diarrhea and abdominal pain improved with antibiotics. She was discharged with cipro/flagyl to complete antibiotic course at home. PCP follow up recommended. Patient's stool culture returned positive for campylobacter jejuni following discharge, covered with antibiotics. Assessment: Gen: awake, alert HEENT: normocephalic, atraumatic, good hearing acuity, moist mucous membranes Resp: good air exchange, breathing comfortably with no accessory muscle use CVS: good distal perfusion x 4, GI: soft, NTTP, ND : no SPT, no CVAT, umanzor catheter not present MSK: no pitting edema, no clubbing Neuro: non-focal, moving all extremities Psych: cooperative, euthymic mood Patient Condition at Discharge: Stable Plan - Discharge Summary New Discharge Prescriptions: New Ciprofloxacin HCl [Cipro] 500 mg PO BID #10 tab metroNIDAZOLE [Flagyl] 500 mg PO TID #15 tab Acetaminophen Tab [Tylenol] 650 mg PO Q4HR PRN tab PRN Reason: Fever And/ Or Pain Continue rOPINIRole HCL [rOPINIRole HCL ER] 2 mg PO BID Lansoprazole [Prevacid] 30 mg PO BID Pregabalin [Lyrica] 300 mg PO BID Triamterene-Hctz 37.5-25Mg [Dyazide 37.5-25 Capsule] 1 cap PO DAILY Fluticasone Nasal [place] [Flonase Nasal [place]] 2 spray EA NOSTRIL BID predniSONE See Taper PO DAILY HYDROcodone/APAP 10-325MG [[place] 10-325] 1 tab PO Q6H PRN PRN Reason: Pain Discontinued Celecoxib [CeleBREX] 200 mg PO DAILY Azithromycin [Zithromax] See Taper PO DAILY Discharge Medication List Lansoprazole [Prevacid] 30 mg PO BID 01/22/16 [History] rOPINIRole HCL [rOPINIRole HCL ER] 2 mg PO BID 01/22/16 [History] Pregabalin [Lyrica] 300 mg PO BID 04/26/20 [History] Triamterene-Hctz 37.5-25Mg [Dyazide 37.5-25 Capsule] 1 cap PO DAILY 04/26/20 [History] Fluticasone Nasal [place] [Flonase Nasal [place]] 2 spray EA NOSTRIL BID 09/12/20 [History] HYDROcodone/APAP 10-325MG [[place] 10-325] 1 tab PO Q6H PRN 09/12/20 [History] predniSONE See Taper PO DAILY 09/12/20 [History] Acetaminophen Tab [Tylenol] 650 mg PO Q4HR PRN tab 09/14/20 [Rx] Ciprofloxacin HCl [Cipro] 500 mg PO BID #10 tab 09/14/20 [Rx] metroNIDAZOLE [Flagyl] 500 mg PO TID #15 tab 09/14/20 [Rx] Follow up Appointment(s)/Referral(s): Bakari Jack MD [Primary Care Provider] - 1-2 days (Please call and schedule your appointment the office did not answer.) Patient Instructions/Handouts: Ciprofloxacin (By mouth), Metronidazole (By mouth), Acute Nausea and Vomiting (DC) Activity/Diet/Wound Care/Special Instructions: diet as tolerated Limit activity until seen by DrIfrah Monaco Disposition: HOME SELF-CARE
== END 2020-09-14 14:22 | disposition home or self-care (01) | DRG 392 ==
LOC: EC 19:51 → 5NMEDONC 23:30 → OBSVTOIN 09-14 08:30
PROVIDERS: ADMIT Internal Medicine; ATTEND Internal Medicine
DX: K57.32 Diverticulitis of large intestine without perforation or abscess without bleeding (principal); K56.7 Ileus, unspecified; E86.0 Dehydration; E87.6 Hypokalemia; G25.81 Restless legs syndrome; G62.9 Polyneuropathy, unspecified; I10 Essential (primary) hypertension; I25.10 Atherosclerotic heart disease of native coronary artery without angina pectoris; I25.2 Old myocardial infarction; K52.9 Noninfective gastroenteritis and colitis, unspecified; M79.7 Fibromyalgia; Z20.822 Contact with and (suspected) exposure to COVID-19; Z79.1 Long term (current) use of non-steroidal anti-inflammatories (NSAID); Z79.899 Other long term (current) drug therapy; Z90.710 Acquired absence of both cervix and uterus; Z90.49 Acquired absence of other specified parts of digestive tract; Z98.890 Other specified postprocedural states; Z88.5 Allergy status to narcotic agent; Z88.8 Allergy status to other drugs, medicaments and biological substances
CPT/HCPCS: 36415; 74177; 76705; 80053; 81001; 82150; 82272; 83605; 83690; 83735; 84132; 85025; 87045; 87046; 87324; 96365; 96366; 99285

== ENCOUNTER 2021-01-26 21:36 | Inpatient (IN) | payer MEDICARE, BC ==
[2021-01-26] MEDS ORDERED: SODIUM CHLORIDE 0.9% 1,000 ML IV STA (21:57)
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
[2021-01-26 22:51] LABS: Basophils % (A) 1 %; Eosinophils # (A) 0.3 k/uL (0-0.7); Eosinophils % (A) 7 %; HCT 34.4 % (34.0-46.0); HGB 12.3 gm/dL (11.4-16.0); Lymphocytes # (A) 1.7 k/uL (1.0-4.8); Lymphocytes % (A) 39 %; MCH 30.9 pg (25.0-35.0); MCHC 35.8 g/dL (31.0-37.0); MCV 86.4 fL (80.0-100.0); Mean Platelet Volume 8.7; Monocytes # (A) 0.3 k/uL (0-1.0); Monocytes % (A) 6 %; Neutrophils % (A) 46 %; Platelet Count 160 k/uL (150-450); RBC 3.98 m/uL (3.80-5.40); WBC 4.4 k/uL (3.8-10.6)
[2021-01-26 23:00] LABS: ALT 12 U/L (4-34); AST 24 U/L (14-36); African American GFR (CKD) 74 (>60 ml/min/1.73 sqM); Albumin 3.9 g/dL (3.5-5.0); Alkaline Phosphatase 94 U/L (38-126); Anion Gap 11 mmol/L; Blood Urea Nitrogen 22 mg/dL (7-17); Calcium 9.2 mg/dL (8.4-10.2); Carbon Dioxide 23 mmol/L (22-30); Chloride 106 mmol/L (98-107); Glucose 94 mg/dL (74-99); Lipase 96 U/L (23-300); Magnesium 2.3 mg/dL (1.6-2.3); Non-African American GFR(CKD) 65 (>60 ml/min/1.73 sqM); Potassium 3.6 mmol/L (3.5-5.1); Sodium 140 mmol/L (137-145); Total Bilirubin <0.1 mg/dL (0.2-1.3)
[2021-01-26 23:08] LABS: INR 0.9 (<1.2); Partial Thromboplastin Time 22.4 sec (22.0-30.0); Prothrombin Time 9.8 sec (9.0-12.0)
--- NOTE | 2021-01-26 23:21 | XR ---
EXAMINATION TYPE: XR chest 2V DATE OF EXAM: 01/26/2021 COMPARISON: 05/15/2020 HISTORY: Chest pain TECHNIQUE: FINDINGS: Heart and mediastinum are normal. There is large hiatal hernia. Thoracic aorta is atheromat ous. Lungs are clear of infiltrate. There is no heart failure. There are chest leads. The bony thorax appears intact. IMPRESSION: No active cardiopulmonary disease. No change.
--- NOTE | 2021-01-27 00:08 | CT ---
EXAMINATION TYPE: CT brain wo con DATE OF EXAM: 01/27/2021 COMPARISON: 05/15/2020 HISTORY: Dizziness CT DLP: 1084.4 mGycm Automated exposure control for dose reduction was used. Ventricles have normal size. There is no mass effect nor midline shift. There is no sign of intracran ial hemorrhage. There is normal aeration of the mastoid air cells. Skull base is intact. IMPRESSION: Negative unenhanced head CT scan. No change.
--- NOTE | 2021-01-27 00:23 | CT ---
EXAMINATION TYPE: CT angio chest DATE OF EXAM: 01/27/2021 COMPARISON: 10/22/2018 HISTORY: Dizziness CT DLP: 341.8 mGycm Automated exposure control for dose reduction was used. CONTRAST: Performed with IV Contrast, patient injected with 80 mL of Isovue 370. There are 3-D post processed images. There is some mild peripheral reticular interstitial density in both lungs. There is no evidence of a solid pulmonary mass. There is no pleural effusion. There is mild subsegmental atelectasis left lung base. There is no pericardial effusion. There is large hiatal hernia. Thoracic aorta measures up to 3.9 cm. There is no dissection. There is no evidence of filling defect in the pulmonary arteries. There is no mediastinal adenopathy. There are no hilar masses. There is some spurring in the thoracic spine. I see no compression fracture. Sternum is intact. IMPRESSION: Borderline aneurysm of the ascending aorta. No evidence of pulmonary embolism. Interstiti al infiltrates and subsegmental atelectasis in the lungs appears not significantly different than old exam. Large hiatal hernia unchanged.
[2021-01-27] MEDS ORDERED: NITROGLYCERIN SL TABS 0.4 MG TAB SUBLINGUAL PRN (01:39)
[2021-01-27] MEDS ORDERED: MORPHINE SULFATE 4 MG/ML SYRINGE IVP STA (02:37)
[2021-01-27] MEDS ORDERED: MORPHINE SULFATE 4 MG/ML SYRINGE IVP PRN (02:37)
[2021-01-27] MEDS ORDERED: HYDROmorphone 1 MG/ML 1 ML SYRINGE IVP STA (02:43)
[2021-01-27] MEDS: HYDROmorphone 1 MG/ML 1 ML SYRINGE IVP PRN ×2 (08:22→20:54)
[2021-01-27] MEDS ORDERED: ASPIRIN 81 MG PO SCH (09:00)
[2021-01-27] MEDS ORDERED: NON FORMULARY DRUG (Glucosamine-Chondr 500-400mg 1 EACH Each) PO SCH (09:15)
[2021-01-27] MEDS ORDERED: MELOXICAM 7.5 MG TAB PO PRN (09:17)
[2021-01-27] MEDS ORDERED: LIDOCAINE 5% PATCH TOPICAL PRN (09:17)
[2021-01-27] MEDS: PREGABALIN 100 MG CAP PO SCH ×2 (09:32→20:53)
[2021-01-27] MEDS: MULTIVITAMINS, THERA 1 EACH TAB PO SCH (09:32)
[2021-01-27] MEDS: CYANOCOBALAMIN 500 MCG TAB PO SCH (09:32)
[2021-01-27] MEDS: ASPIRIN 81 MG PO SCH (09:33)
[2021-01-27] MEDS: ZINC SULFATE 220 MG CAP PO SCH (09:34)
[2021-01-27] MEDS: PANTOPRAZOLE 40 MG TABLET PO SCH ×2 (09:35→17:41)
[2021-01-27] MEDS: TRIAMTERENE-HCTZ 37.5-25MG 1 EACH CAP PO SCH (09:40)
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
--- NOTE | 2021-01-27 13:29 | ECHOF ---
Referral Reason:effusion MEASUREMENTS -------- HEIGHT: 167.6 cm WEIGHT: 68.0 kg BP: 131/80 RVIDd: 2.0 cm (< 3.3) IVSd: 1.3 cm (0.6 - 1.1) LVIDd: 3.1 cm (3.9 - 5.3) LVPWd: 1.5 cm (0.6 - 1.1) IVSs: 1.6 cm LVIDs: 1.8 cm LVPWs: 1.5 cm LAESV Index (A-L): 22.53 ml/m Ao Diam: 3.7 cm (2.0 - 3.7) AV Cusp: 2.2 cm (1.5 - 2.6) LA Diam: 3.4 cm (2.7 - 3.8) MV EXCURSION: 19.089 mm (> 18.000) MV EF SLOPE: 83 mm/s (70 - 150) EPSS: 0.3 cm MV E Jossue: 1.12 m/s MV DecT: 210 ms MV A Jossue: 0.91 m/s MV E/A Ratio: 1.23 AR PHT: 1080 ms RAP: 5.00 mmHg RVSP: 29.32 mmHg FINDINGS -------- This was a technically good study. The left ventricular size is normal. There is mild concentric left ventricular hypertrophy. Overa ll left ventricular systolic function is normal with, an EF between 55 - 60 %. Normal LAP. Grade 1 Diastolic Dysfunction. The right ventricle is normal in size. The left atrial size is normal. Normal LA size by volume 22+/-6 ml/m2. The right atrial size is normal. The aortic valve is trileaflet and appears structurally normal. Trace amount of aortic regurgitatio n. The mitral valve is normal. The mitral valve leaflets are mildly thickened. Emem-mt-[id number] mitr al regurgitation is present. The tricuspid valve appears structurally normal. Mild tricuspid regurgitation present. Right vent ricular systolic pressure is normal at < 35 mmHg. There is no pulmonic regurgitation present. The aortic root size is normal. Normal inferior vena cava with normal inspiratory collapse consistent with estimated right atrial pre ssure of 5 mmHg. There is no pericardial effusion. CONCLUSIONS -------- 1. The left ventricular size is normal. 2. There is mild concentric left ventricular hypertrophy. 3. Overall left ventricular systolic function is normal with, an EF between 55 - 60 %. 4. Normal LAP. Grade 1 Diastolic Dysfunction. 5. Trace amount of aortic regurgitation. 6. The mitral valve leaflets are mildly thickened. 7. Xpqt-jv-fiagvvyh mitral regurgitation is present. 8. Mild tricuspid regurgitation present. 9. There is no pericardial effusion. RATE MARKER: Dasha Hitchcock RDCS
[2021-01-27] MEDS: ACETAMINOPHEN TAB 325 MG TAB PO PRN (13:36)
--- NOTE | 2021-01-27 16:33 | MR ---
EXAMINATION TYPE: MR brain/cspine wo/w DATE OF EXAM: 01/27/2021 COMPARISON: None HISTORY: Diplopia, left sided neck pain, weakness. CONTRAST: Performed utilizing 7 mL intravenous Gadavist gadolinium contrast. TECHNIQUE: Multiplanar, multiecho imaging on a 3.0 Andreia magnet is performed through the brain. Stud y is performed within 24 hours of arrival to the hospital. The craniovertebral junction is normal. The pituitary is normal. Diffusion-weighted imaging is performed. No abnormal hyperintensity is present to suggest an acute i ntracranial infarct or acute ischemic change. There are scattered punctate areas of hyperintensity on T2 and Inversion Recovery weighted sequences which are non-specific but can be related to microvascular ischemic changes. Ventricles and sulci are mildly prominent for the patient age. No suspicious enhancement is evident. IMPRESSIONS: 1. Chronic appearing punctate scattered deep white matter changes, likely on the basis of chronic whi te matter ischemic change with some age-related atrophy. EXAMINATION TYPE: MR brain/cspine wo/w DATE OF EXAM: 01/27/2021 COMPARISON: None HISTORY: Diplopia, left sided neck pain, weakness. CONTRAST: Performed utilizing 7 mL intravenous Gadavist gadolinium contrast. TECHNIQUE: Multiplanar multiecho imaging on a 3.0 Andreia magnet is performed through the cervical spin e. FINDINGS: The craniovertebral junction is normal. Anterior cervical fusion is evident extending C3-C6 . This causes susceptibility artifact and limiting evaluation. There is some straightening of the cer vical spine through this region. Following contrast demonstration no suspicious enhancement is eviden t. No focal disc herniations or significant disc bulges are evident. No spinal canal stenosis is evident . There is some limitation in evaluating the foramen due to the susceptibility artifact. Foraminal st enosis appears to be present on the right at C7-T1 region. Remaining foramen as visualized appear nor mal. IMPRESSIONS: 1. Post anterior cervical fusion changes. 2. Some right foraminal narrowing in the region of C7 T1 may be present. Correlate with radicular sym ptoms.
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
[2021-01-27] MEDS: HYDROcodone/APAP 10-325MG 1 EACH TAB PO PRN (17:41)
--- NOTE | 2021-01-27 18:25 | P.PN ---
Progress Note - Text Progress Note Date: 01/27/[address] and MRI of neck reviewed. Pt is s/p C3-6 ACDF. Hardware in good position. Good decompression noted. Pt has a high T1 slope angle with a C7-T1 subtle anteriorlisthesis, this causes some mild stenosis at this level. There is significant motion artifact on MRI making it somewhat hard to decipher. There are no fracture dislocation or lesions noted. C0-1 and C1-2 appear stable at this time. There is osteopenia within the bones. There is some moderate posterior stenosis noted. There is facet arthropathy noted. No severe stenosis, myelomalacia or cord signal changes. No emergent surgery at this time. Will evaluate pt and make further recommendations.
[2021-01-28] MEDS: HYDROcodone/APAP 10-325MG 1 EACH TAB PO PRN ×2 (02:17→19:03)
--- NOTE | 2021-01-28 08:17 | P.PN ---
Subjective Progress Note Date: 01/28/21 Principal diagnosis: Chest pain This is a 70-year-old female patient was seen yesterday as a consult for atypical chest discomfort. She presented to the hospital because of dizziness and lightheadedness and also double vision and also chest discomfort and left arm discomfort. The discomfort was very atypical for angina. She underwent an echo which revealed normal left systolic function without significant valvular abnormalities and she was ruled out for acute coronary event. She has mild CAD based on heart catheterization was performed at [facility] 5 years ago The patient was seen this morning. She is chest pain-free at this point. She continues to have the work up by the neurology service and she underwent yesterday an MRI and that came in to be unremarkable for acute events. I told the patient that she probably need to have a stress test as an outpatient because Saturday she probably would benefit from a stress test as an outpatient if she remains asymptomatic and no more episode of chest pain or chest discomfort. Objective - Vital Signs Vital signs: Vital Signs Temp 97.8 F 01/28/21 07:00 Pulse 58 L 01/28/21 07:00 Resp 17 01/28/21 07:00 BP 110/70 01/28/21 07:00 Pulse Ox 99 01/28/21 07:00 Intake & Output 01/27/21 01/28/21 01/28/21 18:59 06:59 18:59 Intake Total 350 Balance 350 Intake: IV 350 Sodium Chloride 0.9% 1, 350 000 ml @ 100 mls/hr IV . Q10H STA Rx#:[id number] Other: Voiding Method Toilet Toilet # Voids 2 2 - Constitutional General appearance: Present: no acute distress - Respiratory Respiratory: bilateral: CTA - Cardiovascular Rhythm: regular Heart sounds: normal: S1, S2 - Labs CBC & Chem 7: 01/26/21 22:31 01/26/21 22:31 Assessment and Plan Assessment: Assessment #1 atypical chest discomfort #2 possible TIA #3 multiple comorbid conditions Plan #1 acute coronary event was ruled out #2 the echo showed normal LV function #3 the patient benefit from stress test, probably as an outpatient since this is the weekend, if she remains asymptomatic
[2021-01-28 08:46] LABS: Basophils # (A) 0.02 X 10*3/uL (0.00-0.10); Basophils % (A) 0.6 %; Eosinophils # (A) 0.26 X 10*3/uL (0.04-0.35); Eosinophils % (A) 7.4 %; HCT 34.3 % (37.2-46.3); HGB 11.3 g/dL (12.0-15.0); Lymphocytes # (A) 1.16 X 10*3/uL (0.90-5.00); Lymphocytes % (A) 33.2 %; MCH 29.6 pg (27.0-32.0); MCHC 32.9 g/dL (32.0-37.0); MCV 89.8 fL (80.0-97.0); Mean Platelet Volume 11.5 fL (9.5-12.2); Monocytes # (A) 0.35 X 10*3/uL (0.20-1.00); Neutrophils # (A) 1.69 X 10*3/uL (1.80-7.70); Neutrophils % (A) 48.5 %; Platelet Count 146 X 10*3/uL (140-440); RBC 3.82 X 10*6/uL (4.10-5.20); RDW 12.8 % (11.5-14.5); WBC 3.49 X 10*3/uL (4.50-10.00)
[2021-01-28] MEDS: PREGABALIN 100 MG CAP PO SCH ×2 (09:04→19:00)
[2021-01-28] MEDS: PANTOPRAZOLE 40 MG TABLET PO SCH ×2 (09:04→17:29)
[2021-01-28] MEDS: CYANOCOBALAMIN 500 MCG TAB PO SCH (09:04)
[2021-01-28] MEDS: TRIAMTERENE-HCTZ 37.5-25MG 1 EACH CAP PO SCH (09:04)
[2021-01-28] MEDS: ZINC SULFATE 220 MG CAP PO SCH (09:04)
[2021-01-28] MEDS: MULTIVITAMINS, THERA 1 EACH TAB PO SCH (09:04)
[2021-01-28] MEDS: ASPIRIN 81 MG PO SCH (09:04)
[2021-01-28 09:17] LABS: African American GFR (CKD) 75.6 (60.0-200.0); Anion Gap 8.1 mmol/L (4.00-12.00); BUN/Creat Ratio 23.33 Ratio (12.00-20.00); Calcium 9.5 mg/dL (8.7-10.3); Carbon Dioxide 26.9 mmol/L (21.6-31.8); Chol/HDL Ratio 3.74; LDL Cholesterol,Calculated 94.4 mg/dL (0.0-131.0); Non-African American GFR(CKD) 65.2 (60.0-200.0); Potassium 3.8 mmol/L (3.5-5.5); VLDL Calculation 20.6 mg/dL (5.00-40.00)
[2021-01-28] MEDS: LORazepam 0.5 MG TAB PO PRN (14:54)
[2021-01-28] MEDS: ACETAMINOPHEN TAB 325 MG TAB PO PRN (14:54)
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
[2021-01-29] MEDS: MULTIVITAMINS, THERA 1 EACH TAB PO SCH (08:37)
[2021-01-29] MEDS: PREGABALIN 100 MG CAP PO SCH ×2 (08:37→20:08)
[2021-01-29] MEDS: CYANOCOBALAMIN 500 MCG TAB PO SCH (08:37)
[2021-01-29] MEDS: PANTOPRAZOLE 40 MG TABLET PO SCH ×2 (08:37→17:46)
[2021-01-29] MEDS: ASPIRIN 81 MG PO SCH (08:37)
[2021-01-29] MEDS: ZINC SULFATE 220 MG CAP PO SCH (08:37)
[2021-01-29] MEDS: TRIAMTERENE-HCTZ 37.5-25MG 1 EACH CAP PO SCH (08:38)
--- NOTE | 2021-01-29 08:43 | P.PN ---
Subjective Progress Note Date: 01/29/21 Principal diagnosis: Chest pain This is a 70-year-old female patient was seen yesterday as a consult for atypical chest discomfort. She presented to the hospital because of dizziness and lightheadedness and also double vision and also chest discomfort and left arm discomfort. The discomfort was very atypical for angina. She underwent an echo which revealed normal left systolic function without significant valvular abnormalities and she was ruled out for acute coronary event. She has mild CAD based on heart catheterization was performed at [facility] 5 years ago The patient was seen this morning. She was going to be discharged home yesterday when she developed chest discomfort last night and for that reason we kept the patient another day for monitoring. She was seen this morning and she stated that since that last episode she has been chest pain-free. I'm going to obtain a stress test to rule out any progression in the severity of CAD which was identified or prior heart catheterization at [facility]. Further recommendation to follow that. Please note that the echo showed normal left ventricular systolic function. The workup for stroke is negative. Objective - Vital Signs Vital signs: Vital Signs Temp 98.1 F 01/29/21 07:00 Pulse 65 01/29/21 07:00 Resp 14 01/29/21 07:00 BP 127/75 01/29/21 07:00 Pulse Ox 98 01/29/21 07:00 Intake & Output 01/28/21 01/29/21 01/29/21 18:59 06:59 18:59 Intake Total 440 Balance 440 Intake: Oral 440 Other: Voiding Method Toilet Toilet # Voids 1 1 - Constitutional General appearance: Present: no acute distress - Respiratory Respiratory: bilateral: CTA - Cardiovascular Rhythm: regular Heart sounds: normal: S1, S2 Abnormal Heart Sounds: Present: systolic murmur - Labs CBC & Chem 7: 01/28/21 03:22 01/28/21 03:22 Labs: Abnormal Lab Results - Last 24 Hours (Table) 01/28/21 01/28/21 Range/Units 03:22 03:22 WBC 3.49 L (4.50-10.00) X 10*3/uL RBC 3.82 L (4.10-5.20) X 10*6/uL Hgb 11.3 L (12.0-15.0) g/dL Hct 34.3 L (37.2-46.3) % Neutrophils # 1.69 L (1.80-7.70) X 10*3/uL BUN/Creatinine Ratio 23.33 H (12.00-20.00) Ratio Assessment and Plan Assessment: Assessment #1 atypical chest discomfort #2 possible TIA #3 multiple comorbid conditions Plan #1 acute coronary event was ruled out #2 the echo showed normal LV function #3 stress test to rule out severe CAD
[2021-01-29] MEDS: HYDROcodone/APAP 10-325MG 1 EACH TAB PO PRN ×2 (09:11→20:10)
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
--- NOTE | 2021-01-29 13:37 | XR ---
EXAMINATION TYPE: XR cervical spine comp DATE OF EXAM: 01/29/2021 COMPARISON: 05/02/2020 HISTORY: 70-year-old female pain, surgery approximately one year ago. TECHNIQUE: 5 views FINDINGS: Normal odontoid view. Multilevel facet and uncovertebral joint degenerative change. Variable mild bon y neural foraminal narrowing throughout on both sides, left greater than right. ACDF from C3 through C6 levels. Moderate degenerative disc disease below the fusion at C6-C7 and grade 1 anterolisthesis a t C7-T1. No prevertebral soft tissue swelling. IMPRESSION: Status post C3-C6 ACDF. Facet and uncovertebral joint arthropathy causing variable mild bony neurofor aminal narrowing on both sides, left greater than right. Degenerative grade 1 anterolisthesis C7-T1 a nd moderate degenerative disc disease below the fusion at C6-C7.
--- NOTE | 2021-01-29 13:38 | XR ---
EXAMINATION TYPE: XR shoulder complete LT, 3 views DATE OF EXAM: 01/29/2021 Comparison: None Clinical History: 70-year-old female pain Findings: Bony irregularity at the greater tuberosity. Subacromial space is preserved. The glenohumeral joint s pace is maintained. No tendinous or bursal calcifications. No acute fracture, subluxation, or disloca tion. Impression: Bony changes at the greater tuberosity suggest chronic rotator cuff tendinopathy. No acute osseous ab normality seen.
[2021-01-29] MEDS: LORazepam 0.5 MG TAB PO PRN ×2 (15:11→22:42)
[2021-01-29] MEDS: ACETAMINOPHEN TAB 325 MG TAB PO PRN (15:11)
[2021-01-29] MEDS: HYDROmorphone 1 MG/ML 1 ML SYRINGE IVP PRN (22:42)
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
[2021-01-30] MEDS ORDERED: CAFFEINE CITRATE 60 MG/3 ML VIAL IV PRN (06:00)
[2021-01-30] MEDS ORDERED: REGADENOSON 0.4 MG/5 ML SYRINGE IV PRN (06:00)
[2021-01-30] MEDS ORDERED: AMINOPHYLLINE 500 MG/20 ML VIAL IV PRN (06:00)
[2021-01-30] MEDS: CYANOCOBALAMIN 500 MCG TAB PO SCH (08:05)
[2021-01-30] MEDS: MULTIVITAMINS, THERA 1 EACH TAB PO SCH (08:05)
[2021-01-30] MEDS: PREGABALIN 100 MG CAP PO SCH ×2 (08:05→21:54)
[2021-01-30] MEDS: ASPIRIN 81 MG PO SCH (08:05)
[2021-01-30] MEDS: PANTOPRAZOLE 40 MG TABLET PO SCH ×2 (08:05→17:57)
[2021-01-30] MEDS: ZINC SULFATE 220 MG CAP PO SCH (08:06)
[2021-01-30] MEDS: TRIAMTERENE-HCTZ 37.5-25MG 1 EACH CAP PO SCH (08:07)
[2021-01-30] MEDS: HYDROcodone/APAP 10-325MG 1 EACH TAB PO PRN ×2 (08:17→14:13)
[2021-01-30 08:50] LABS: Basophils # (A) 0.04 X 10*3/uL (0.00-0.10); Eosinophils # (A) 0.23 X 10*3/uL (0.04-0.35); HCT 36.4 % (37.2-46.3); HGB 11.8 g/dL (12.0-15.0); Lymphocytes # (A) 1.37 X 10*3/uL (0.90-5.00); Lymphocytes % (A) 35.9 %; MCH 29.5 pg (27.0-32.0); MCHC 32.4 g/dL (32.0-37.0); Mean Platelet Volume 11.4 fL (9.5-12.2); Monocytes # (A) 0.46 X 10*3/uL (0.20-1.00); Neutrophils # (A) 1.71 X 10*3/uL (1.80-7.70); Neutrophils % (A) 44.8 %; Platelet Count 151 X 10*3/uL (140-440); RDW 12.6 % (11.5-14.5); WBC 3.82 X 10*3/uL (4.50-10.00)
[2021-01-30 09:06] LABS: African American GFR (CKD) 66.6 (60.0-200.0); Anion Gap 6.8 mmol/L (4.00-12.00); Calcium 8.8 mg/dL (8.7-10.3); Carbon Dioxide 29.2 mmol/L (21.6-31.8); Non-African American GFR(CKD) 57.4 (60.0-200.0); Potassium 3.7 mmol/L (3.5-5.5)
--- NOTE | 2021-01-30 10:08 | P.PN ---
Subjective Progress Note Date: 01/30/21 HISTORY OF PRESENT ILLNESS: This is a 70-year-old female patient was seen yesterday as a consult for atypical chest discomfort. She presented to the hospital because of dizziness a nd lightheadedness and also double vision and also chest discomfort and left arm discomfort. The discomfort was very atypical for angina. She underwent an echo which revealed normal left systolic function without significant valvular abnormalities and she was ruled out for acute coronary event. She has mild CAD based on heart catheterization was performed at [facility] 5 years ago The patient was seen this morning. She was going to be discharged home yesterday when she developed chest discomfort last night and for that reason we kept the patient another day for monitoring. She was seen this morning and she stated that since that last episode she has been chest pain-free. I'm going to obtain a stress test to rule out any progression in the severity of CAD which was identified or prior heart catheterization at [facility]. Further recommendation to follow that. Please note that the echo showed normal left ventricular systolic function. The workup for stroke is negative. 01/30/2021 Patient examined this morning. She is resting comfortably in bed. She reports feeling some fluttering this morning. Telemetry reveals sinus mechanism. She denies any chest pain or pressure. She denies shortness of breath. The patient is scheduled for a stress test today. Echocardiogram completed revealed ejection fraction 55-60%, trace aortic regurgitation, mild to moderate mitral regurgitation, and mild tricuspid regurgitation PHYSICAL EXAM: VITAL SIGNS: Reviewed. GENERAL: Well-developed in no acute distress. NECK: Supple. No JVD or thyromegaly LUNGS: Respirations even and unlabored. Lungs essentially clear to auscultation bilaterally. HEART: Regular rate and rhythm. S1 and S2 heard. Systolic murmur noted. EXTREMITIES: Normal range of motion. No clubbing or cyanosis. Peripheral pulses intact. No lower extremity edema ASSESSMENT: Chest pain, atypical Diplopia Mild coronary artery disease per cardiac catheterization at [facility] Hypertension Fibromyalgia PLAN: Continue to monitor monitoring Continue current cardiac medications Patient to undergo Lexiscan stress test today. If stress test is negative, the patient may be discharged home from a cardiac standpoint and follow up on an outpatient basis Nurse practitioner note has been reviewed by physician. Signing provider agrees with the documented findings, assessment, and plan of care. Objective - Vital Signs Vital signs: Vital Signs Temp 97.9 F 01/30/21 07:00 Pulse 66 01/30/21 07:00 Resp 14 01/30/21 07:00 BP 113/73 01/30/21 07:00 Pulse Ox 97 01/30/21 07:00 Intake & Output 01/29/21 01/30/21 01/30/21 18:59 06:59 18:59 Weight 68.04 kg Other: Voiding Method Toilet Toilet # Voids 2 3 # Bowel Movements 0 - Labs CBC & Chem 7: 01/30/21 05:57 01/30/21 05:57 Labs: Abnormal Lab Results - Last 24 Hours (Table) 01/30/21 01/30/21 Range/Units 05:57 05:57 WBC 3.82 L (4.50-10.00) X 10*3/uL RBC 4.00 L (4.10-5.20) X 10*6/uL Hgb 11.8 L (12.0-15.0) g/dL Hct 36.4 L (37.2-46.3) % Neutrophils # 1.71 L (1.80-7.70) X 10*3/uL Est GFR (CKD-EPI)NonAf 57.4 L (60.0-200.0) BUN/Creatinine Ratio 24.00 H (12.00-20.00) Ratio
--- NOTE | 2021-01-30 11:30 | EST ---
EXERCISE STRESS AGE: 70 SEX: F HT: 5'6" WT: 150 lbs PROTOCOL: Lexiscan STAGE: N/A DURATION OF EXERCISE: N/A HEART RATE REST: 69 BLOOD PRESSURE REST: 138/86 MAXIMUM HEART RATE ACHIEVED: 98 MAXIMUM BLOOD PRESSURE: 143/75 85% MPHR: 128 100% MPHR: 151 METS: N/A INDICATIONS: Chest pain CLINICAL INFORMATION: Baseline rhythm is sinus mechanism, rate of 69. Normal axis, RS prime. Baseline blood pressure 138/86 mmHg. Patient received injection of Lexiscan. Electrocardiograph monitoring revealed no evidence of diagnostic ischemic ST deviation. Cardiolite was injected per protocol. CONCLUSION: 1. Nondiagnostic electrocardiograph stress testing. 2. Nuclear images will be reported separately. MMODL / IJN: [id number] /
--- NOTE | 2021-01-30 12:05 | NM ---
EXAMINATION TYPE: NM stress lexiscan cardiolite DATE OF EXAM: 01/30/2021 COMPARISON: Prior nuclear medicine stress test October 05, 2016. HISTORY: Chest pain. History of hypertension, prior heart attack, difficulty breathing, and palpitati ons. TECHNIQUE: After the intravenous administration of 9.5 mCi Tc 99m Sestamibi - Cardiolite resting SPE CT images acquired 45 minutes post injection. The patient received 0.4mg Lexiscan, 25.9 mCi Tc 99m Sestamibi - Stress images obtained [address] injection FINDINGS: Review of stress and rest SPECT images demonstrates diminished color intensity anterior left ventricu lar wall on stress images versus rest images from base to mid segment on both short axis and vertical long axis images. Acute ischemia at this level cannot be excluded. Finding new from 2017 study. Gat ed analysis shows normal wall motion with an estimated left ventricular ejection fraction of 58 %. IMPRESSION: Cannot exclude acute ischemia anterior left ventricular wall in the LAD distribution. Cor relate clinically and with EKG findings to determine need for further investigation by direct cathete r angiogram.
[2021-01-30] MEDS ORDERED: NITROGLYCERIN SL TABS 0.4 MG TAB SUBLINGUAL PRN (12:20)
[2021-01-30] MEDS ORDERED: ALPRAZolam 0.25 MG TAB PO PRN (12:20)
[2021-01-30] MEDS ORDERED: ALPRAZolam 0.5 MG TAB PO PRN (12:20)
--- NOTE | 2021-01-30 13:29 | EST ---
EXERCISE STRESS DATE OF SERVICE: 01/30/21 AGE: 70 SEX: F HT: 5'6" WT: 150 lbs PROTOCOL: 69 STAGE: 138/86 DURATION OF EXERCISE: N/A HEART RATE REST: 69 BLOOD PRESSURE REST: 138/86 MAXIMUM HEART RATE ACHIEVED: 98 MAXIMUM BLOOD PRESSURE: 143/75 85% MPHR: 128 100% MPHR: 151 METS: N/A CLINICAL INFORMATION: Chest pain RESULTS: Baseline rhythm is sinus mechanism rate of 79, normal axis, intervals, minor nonspecific ST-T wave changes. Baseline blood pressure 138/86 mmHg. Patient received injection of Lexiscan. Electrocardiograph monitoring revealed no evidence of diagnostic ischemic ST deviation. Cardiolite was injected per protocol. CONCLUSION: 1. Nondiagnostic electrocardiograph stress testing. 2. Nuclear images will be reported separately. MMODL / IJN: [id number] /
--- NOTE | 2021-01-30 14:16 | P.PN ---
Subjective Progress Note Date: 01/30/21 This patient is a 70-year-old female with a past medical history of fibromyalgia, GERD, hypertension that presented to [facility] emergency department on 01/26/21 complaints of chest pressure and pain, as well as left arm and neck pain. The patient is status-post C3-C4, C4-C5, and C5-C6 anterior ce rvical decompression and fusion in April [address] Rodriguez. The patient states she has been doing very well with surgery and having no neck pain or upper extremity pain. Patient notes that she was at the dentist on , when she began to experience left shoulder and left arm pain, as well as chest pressure. She states that she drove home and began to experience increasing chest pain, dizziness, lightheadedness. She presented to the emergency department for evaluation. The patient was admitted to internal medicine with consults to cardiology and neurology. Per neurology she underwent brain CT and MRI which was unremarkable for acute events. Per cardiology, acute coronary event was ruled outand her echo showed normal LV function. Patient was planned to discharge yesterday although she experienced another episode of chest discomfort yesterday, therefore cardiology has a stress test planned for tomorrow for further evaluation. Patient also notes issues with double vision, although this has been present for years and this is not new. Patient states currently she is not having any neck pain. She states she is experiencing a burning pain in the posterior shoulder and upper arm, in addition to her chest discomfort. She states this pain does not radiate past her elbow. She states the pain is not affected with movement of the shoulder. She denies pain with neck [id number]. She denies any falls or trauma. She denies fevers, chills, nausea, vomiting. She denies any additional complaints at this time. Vital signs stable. 01/30/21: Patient is seen and examined bedside this morning. She states her arm pain has not changed since yesterday. She is scheduled for a stress test per cardiology today due to her ongoing chest discomfort. Patient has no new complai nts today. Vital signs stable. Objective - Vital Signs Vital signs: Vital Signs Temp 97.6 F 01/30/21 13:45 Pulse 71 01/30/21 13:45 Resp 16 01/30/21 13:45 BP 127/71 01/30/21 13:45 Pulse Ox 96 01/30/21 13:45 Intake & Output 01/29/21 01/30/21 01/30/21 18:59 06:59 18:59 Weight 68.04 kg Other: Voiding Method Toilet Toilet # Voids 2 3 3 # Bowel Movements 0 0 - Exam On examination, the patient is sitting up in bed in no apparent distress. She i s alert and orientated 3. Her head appears normocephalic and atraumatic. Her breathing appears nonlabored. On inspection of the left upper extremity, there is no abrasion, laceration, ecchymosis or signs of trauma. On inspection of the neck, there is no ecchymosis or signs of trauma. There is no pain on palpation of the cervical spine. There is mild pain on palpation of the posterior shoulder and trapezius. No pain with active cwwhh-vd-wquwza of the neck. There is no pain with passive ywsly-nj-vweooz of the shoulder. Patient has full active pcrbp-fn-jgeuxc of the shoulder with more mild pain on extremes. Patient has full motion of the shoulder, elbow, wrist. Motor and sensory function is intact of the bilateral upper extremities. Bilateral upper extremities are warm and well-perfused with brisk capillary refill distally. Patient is able to perform bilateral straight leg raises without pain or issue. Calves are soft and nontender to palpation. - Labs CBC & Chem 7: 01/30/21 05:57 01/30/21 05:57 Labs: Abnormal Lab Results - Last 24 Hours (Table) 01/30/21 01/30/21 Range/Units 05:57 05:57 WBC 3.82 L (4.50-10.00) X 10*3/uL RBC 4.00 L (4.10-5.20) X 10*6/uL Hgb 11.8 L (12.0-15.0) g/dL Hct 36.4 L (37.2-46.3) % Neutrophils # 1.71 L (1.80-7.70) X 10*3/uL Est GFR (CKD-EPI)NonAf 57.4 L (60.0-200.0) BUN/Creatinine Ratio 24.00 H (12.00-20.00) Ratio - Imaging and Cardiology Left shoulder x-rays 01/30/21: No acute fractures or dislocations. Assessment and Plan Assessment: Status-post C3-C4, C4-C5, and C5-C6 anterior cervical decompression and fusion in April [address] Rodriguez Left shoulder pain Chest pain Plan: - Patient is awaiting consultation with interventional pain management. - Medical management per internal medicine, neurology, and cardiology. Per cardiology, stress test planned for today. - We will follow patient and make recommendations as needed.
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
[2021-01-30 19:20] VITALS: RESP 18
[2021-01-30] MEDS: HYDROmorphone 1 MG/ML 1 ML SYRINGE IVP PRN (21:54)
[2021-01-30] MEDS ORDERED: SODIUM CHLORIDE 0.9% 1,000 ML in EMPTY BAG 1 BAG IV ONE (23:00)
[2021-01-31] MEDS: ACETAMINOPHEN TAB 325 MG TAB PO PRN (01:48)
[2021-01-31] MEDS: HYDROmorphone 1 MG/ML 1 ML SYRINGE IVP PRN (01:55)
[2021-01-31] MEDS ORDERED: ASPIRIN 325 MG TAB PO ONE (07:00)
[2021-01-31] MEDS ORDERED: ATORVASTATIN 80 MG TAB PO ONE (07:00)
[2021-01-31] MEDS ORDERED: HEPARIN SODIUM,PORCINE 10,000 UNIT in SODIUM CHLORIDE 0.9% 1,000 ML IRRIGATION PRN (07:00)
[2021-01-31] MEDS ORDERED: HEPARIN SODIUM,PORCINE 2,500 UNIT in SODIUM CHLORIDE 0.9% 250 ML IRRIGATION PRN (07:00)
[2021-01-31] MEDS ORDERED: LIDOCAINE 1% INJ 10MG/ML (20 ML MDV) ONE (07:24)
[2021-01-31] MEDS ORDERED: fentaNYL (PF) 50 MCG/ML 2 ML AMP ONE (07:24)
[2021-01-31] MEDS: PANTOPRAZOLE 40 MG TABLET PO SCH (07:26)
[2021-01-31] MEDS: ASPIRIN 81 MG PO SCH (07:26)
[2021-01-31] MEDS: PREGABALIN 100 MG CAP PO SCH (07:26)
[2021-01-31] MEDS: TRIAMTERENE-HCTZ 37.5-25MG 1 EACH CAP PO SCH (07:27)
[2021-01-31] MEDS: HYDROcodone/APAP 10-325MG 1 EACH TAB PO PRN (07:31)
[2021-01-31] MEDS ORDERED: MIDAZOLAM 2 MG/2 ML VIAL IV ONE (08:00)
[2021-01-31] MEDS ORDERED: IV FLUID CONTINUATION 600 ML IV ONE (08:00)
[2021-01-31] MEDS ORDERED: LIDOCAINE 1% INJ 10MG/ML (20 ML MDV) SQ ONE (08:00)
[2021-01-31] MEDS ORDERED: fentaNYL (PF) 50 MCG/ML 2 ML AMP IV ONE (08:00)
[2021-01-31] MEDS ORDERED: IOPAMIDOL-370 125ML BTL INJ ONE (08:10)
[2021-01-31] MEDS ORDERED: RX INFO: IV CONTRAST WAS GIVEN 1 EACH MISC MISCELLANE PRN (08:24)
[2021-01-31] MEDS ORDERED: SODIUM CHLORIDE 0.9% 1,000 ML IV SCH (08:30)
--- NOTE | 2021-01-31 09:01 | P.PN ---
Subjective Progress Note Date: 01/30/21 Chest pain/ blurred vision 70-year-old female patient with a past medical history significant for "heart attack" as well as history of neuropathy and also chronic pain presented to the emergency department complaining of neck pain and also left arm pain and also blurry vision. Subsequently the patient was seen by the neurologist regarding the work up for the blurry vision/double vision and an MRI was recommended which was unremarkable; patient was recommended to follow up with primary neurologist as out patient Cardiology was consulted to see the patient to rule out acute coronary syndrome. She stated that she underwent a heart catheterization few years ago at [facility] and that revealed mild nonobstructive coronary artery disease. cardiology recommended out patient workup with stress test and cleared patient for dc; at time of dc patient started having CP; discharge was held and patient is scheduled for stress test tomorrow morning. Patient was evaluated by Ortho and discussed with Dr. Rodriguez. No surgery planned at this time. Recommend consult with interventional pain management; shoulder x- rays to rule-out any bony abnormality or injury. 01/30/2021 Patient is seen and evaluated and follow-up this morning underwent a stress test that cannot exclude acute ischemia anterior left ventricular wall in the LAD distribution and will be undergoing cardiac catheterization in the morning. Patient states she continues to have some shortness of breath with exertion although states that his been ongoing for the past few months. Patient currently denies any chest pain or palpitations and is requesting to go home. This was discussed with cardiology and patient is agreeable to stay for cardiac catheterization. Review of systems: Constitutional: No reports of fatigue, fever, or chills Cardiovascular: No reports of chest pain or palpitations Respiratory: reports occasional shortness of breath with exertion GI: No reports of nausea, vomiting, or diarrhea : No reports of dysuria or retention Neurovascular: No reports of weakness or numbness All medications have been reviewed Objective - Vital Signs Vital signs: Vital Signs Temp 97.9 F 01/30/21 07:00 Pulse 66 01/30/21 07:00 Resp 14 01/30/21 07:00 BP 113/73 01/30/21 07:00 Pulse Ox 97 01/30/21 07:00 Intake & Output 01/29/21 01/30/21 01/30/21 18:59 06:59 18:59 Other: Voiding Method Toilet Toilet # Voids 2 3 # Bowel Movements 0 - Exam Gen: This is a 70-year-old female awake, alert and oriented 3, well-developed, well-nourished. HEENT: Head is atraumatic, normocephalic. Pupils equal, round. Sclerae is anicteric. NECK: Supple. No JVD. No lymphadenopathy. No thyromegaly. LUNGS: Clear to auscultation. No wheezes or rhonchi. No intercostal retractions . HEART: Regular rate and rhythm. No murmur. ABDOMEN: Soft. Bowel sounds are present. No masses. No tenderness. EXTREMITIES: No pedal edema. No calf tenderness. NEUROLOGICAL: Patient is awake, alert and oriented x3. Cranial nerves 2 through 12 are grossly intact. - Labs CBC & Chem 7: 01/30/21 05:57 01/30/21 05:57 Labs: Abnormal Lab Results - Last 24 Hours (Table) 01/30/21 01/30/21 Range/Units 05:57 05:57 WBC 3.82 L (4.50-10.00) X 10*3/uL RBC 4.00 L (4.10-5.20) X 10*6/uL Hgb 11.8 L (12.0-15.0) g/dL Hct 36.4 L (37.2-46.3) % Neutrophils # 1.71 L (1.80-7.70) X 10*3/uL Est GFR (CKD-EPI)NonAf 57.4 L (60.0-200.0) BUN/Creatinine Ratio 24.00 H (12.00-20.00) Ratio Assessment and Plan Assessment: -Acute chest pain; cardiology following and patient underwent a stress test was cannot exclude acute ischemia in the anterior left ventricular wall in the LAD distribution and will be undergoing cardiac catheterization in the morning -Left neck pain; radiculopathy versus plexopathy; pain management consulted and pending at this time. Orthopedics following recommending pain management consult no surgical intervention at this time -Patient is evaluated by neurology; CT of the head was unremarkable; patient is recommended MRI of head and cervical spine -Diplopia, blurry vision; neurology following -Mild renal injury; improving -Hypertension; continue current medications -Fibromyalgia -DVT prophylaxis; SCDs -full code Plan: Patient is undergoing stress test today which is unable to exclude ischemia and cardiology recommending cardiac catheterization and patient is agreeable and will be having catheterization in the morning. Patient will be nothing by mouth at midnight. Troponins have remained negative and basic labs within normal limits. Patient denies any further dizziness or visual disturbances at this time and also denies chest pain. Patient felt she had a normal stress test and was requesting to go home. Will await report from cardiac catheterization.
[2021-01-31] MEDS: MULTIVITAMINS, THERA 1 EACH TAB PO SCH (09:04)
[2021-01-31] MEDS: CYANOCOBALAMIN 500 MCG TAB PO SCH (09:04)
[2021-01-31] MEDS: ZINC SULFATE 220 MG CAP PO SCH (09:04)
--- NOTE | 2021-01-31 09:08 | CC ---
CARDIAC CATHETERIZATION REPORT PROCEDURE PERFORMED: Cardiac catheterization. INDICATION: Chest pain with abnormal stress test. PROCEDURE NOTE: After obtaining informed consent, left heart catheterization and coronary angiogram were performed via the right femoral artery using standard Florence catheters. Patient tolerated the procedure well without any obvious immediate complications. A femoral angiogram was performed and Angio-Seal will be deployed for hemostasis. Patient received moderate conscious sedation. Total sedation time was 17 minute. FINDINGS: HEMODYNAMICS: Left ventricular end-diastolic pressure is 18 mm. There is no significant gradient across the aortic valve. LEFT VENTRICULOGRAM: Not performed. ANGIOGRAPHIC DATA: The left main coronary artery: Left main coronary artery is a short vessel and is free of stenosis. Divides into left anterior descending coronary artery and circumflex coronary artery. LAD and its branches and circumflex coronary artery and its branches are free of significant stenosis. Right coronary artery is a large dominant vessel and is free of significant disease. CONCLUSIONS: 1. Normal coronary arteries. 2. Normal left ventricular end-diastolic pressure. 3. The patient's chest discomfort is noncardiac in origin and her stress test is a false positive stress test. MMODL / IJN: [id number] /
[2021-01-31 09:36] VITALS: TEMP 97.7
[2021-01-31 12:36] VITALS: BP 105/68; PULSE 69
--- NOTE | 2021-01-31 16:31 | P.DS ---
Providers Date of admission: 01/30/21 08:58 Expected date of discharge: 01/31/21 Attending physician: Tameka Martinez Consults: 01/27/21 01:39 Consult Physician Routine Consulting Provider: Donny Youssef Consult Reason/Comments: blurry visison Do you want consulting provider notified?: Yes Consult Physician Urgent Consulting Provider: Armen Shelton Consult Reason/Comments: cp Do you want consulting provider notified?: Yes 01/28/21 08:26 Consult Physician Routine Consulting Provider: Tyler Rodriguez Consult Reason/Comments: cervical radiculopathy Do you want consulting provider notified?: Yes Primary care physician: Bakari Jack Hospital Course: Final diagnosis -Acute chest pain; with acute coronary syndrome ruled out -Status post cardiac catheterization revealing normal coronary arteries. -Left neck pain; radiculopathy versus plexopathy -Diplopia, blurry vision; neurology outpatient recommended -Mild renal injury; improved -Hypertension -Fibromyalgia -DVT prophylaxis -full code Discharge disposition Patient is being discharged in a stable condition with guarded prognosis to home. Patient will follow-up with Dr. Jack in the outpatient setting upon discharge. Patient is to follow-up with cardiology along with pain management and orthopedics in the outpatient setting as well. Total time taken is greater than 35 minutes. Hospital course This is a 70-year-old female was recently admitted with neck pain also left arm pain and blurry vision and some chest pain with increasing shortness of breath and was being closely monitored. Patient underwent stress test with cardiology which could not exclude ischemia and underwent cardiac catheterization today which revealed normal coronary arteries and per Dr. Shelton had false positive stress test. Patient will continue to follow-up with cardiology outpatient. Patient was also seen and evaluated by neurology along with orthopedics and pain management and will be following up outpatient with pain management and orthopedics as she is known to Dr. Rodriguez. Patient denies chest pain but states she has chest heaviness intermittently but states she is going home today. Recommend to continue holding diuretic blood pressure medication until follow-up with primary care provider outpatient. Currently no reports of chest pain, shortness of breath, or palpitations. Patient is afebrile. No reports of nausea or vomiting and patient is tolerating diet. Patient will be discharged home today. On exam vital signs are stable. Cardio S1, S2 are muffled. Respiratory system shows diminished breath sounds at the bases with no wheezing or rhonchi noted. Abdomen is soft and nontender. Nervous system shows no focal deficits. Please refer to medication reconciliation sheet for a list of medications. Patient Condition at Discharge: Fair Plan - Discharge Summary New Discharge Prescriptions: Continue rOPINIRole HCL [rOPINIRole HCL ER] 2 mg PO BID Lansoprazole [Prevacid] 30 mg PO BID Pregabalin [Lyrica] 300 mg PO BID HYDROcodone/APAP 10-325MG [[place] 10-325] 1 tab PO Q6H PRN PRN Reason: Pain Acetaminophen Tab [Tylenol] 650 mg PO Q4HR PRN tab PRN Reason: Fever And/ Or Pain Glucosamine-Chondr 500-400Mg 1 cap PO DAILY Zinc 50 mg PO DAILY Lidocaine 5% Patch [Lidoderm 5% Patch] 1 patch TOPICAL DAILY PRN PRN Reason: Pain Multivitamins, Thera [Multivitamin (formulary)] 1 tab PO DAILY Aspirin EC [Ecotrin Low Dose] 81 mg PO DAILY Celecoxib [CeleBREX] 200 mg PO DAILY PRN PRN Reason: Pain Cyanocobalamin (Vitamin B-12) [Vitamin B-12] 1,000 mcg PO DAILY Discontinued Triamterene-Hctz 37.5-25Mg [Dyazide 37.5-25 Capsule] 1 cap PO DAILY Discharge Medication List Lansoprazole [Prevacid] 30 mg PO BID 01/22/16 [History] rOPINIRole HCL [rOPINIRole HCL ER] 2 mg PO BID 01/22/16 [History] Pregabalin [Lyrica] 300 mg PO BID 04/26/20 [History] HYDROcodone/APAP 10-325MG [[place] 10-325] 1 tab PO Q6H PRN 09/12/20 [History] Acetaminophen Tab [Tylenol] 650 mg PO Q4HR PRN tab 09/14/20 [Rx] Aspirin EC [Ecotrin Low Dose] 81 mg PO DAILY 01/26/21 [History] Celecoxib [CeleBREX] 200 mg PO DAILY PRN 01/26/21 [History] Cyanocobalamin (Vitamin B-12) [Vitamin B-12] 1,000 mcg PO DAILY 01/26/21 [History] Glucosamine-Chondr 500-400Mg 1 cap PO DAILY 01/26/21 [History] Lidocaine 5% Patch [Lidoderm 5% Patch] 1 patch TOPICAL DAILY PRN 01/26/21 [History] Multivitamins, Thera [Multivitamin (formulary)] 1 tab PO DAILY 01/26/21 [His tory] Zinc 50 mg PO DAILY 01/26/21 [History] Follow up Appointment(s)/Referral(s): Tyler Rodriguez DO [Doctor of Osteopathic Medicine] - 1 Week Bakari Jack MD [Primary Care Provider] - 1-2 days Ron Sol MD [STAFF PHYSICIAN] - 02/06/21 10:45 am Chet Castillo DO [REFERRING] - 1 Week Patient Instructions/Handouts: *Surgery [facility] - After Heart Catheterization - [facility] Instructions, Left Heart Catheterization (DC) Activity/Diet/Wound Care/Special Instructions: Activity Limited until follow-up Follow-up with primary care provider upon discharge follow up with pain management outpatient Follow-up with orthopedics outpatient Follow-up with cardiology outpatient Medications as prescribed Discharge Disposition: HOME SELF-CARE
== END 2021-01-31 15:03 | disposition home or self-care (01) | DRG 552 ==
LOC: EC 21:36 → 6NMEDSUR 01-27 01:39 → OBSVTOIN 01-30 08:58
PROVIDERS: ADMIT Hospitalist; ATTEND Hospitalist
PROC: B2111ZZ Fluoroscopy of Multiple Coronary Arteries using Low Osmolar Contrast (ICD-10-PCS; 2021-01-31)
PROC: 4A023N7 Measurement of Cardiac Sampling and Pressure, Left Heart, Percutaneous Approach (ICD-10-PCS; principal; 2021-01-31 07:30)
DX: M47.23 Other spondylosis with radiculopathy, cervicothoracic region (principal); J98.11 Atelectasis; G54.0 Brachial plexus disorders; I71.2 Thoracic aortic aneurysm, without rupture; Z20.822 Contact with and (suspected) exposure to COVID-19; M48.03 Spinal stenosis, cervicothoracic region; G90.9 Disorder of the autonomic nervous system, unspecified; R07.89 Other chest pain; G25.81 Restless legs syndrome; M85.88 Other specified disorders of bone density and structure, other site; I10 Essential (primary) hypertension; I25.2 Old myocardial infarction; K44.9 Diaphragmatic hernia without obstruction or gangrene; K21.9 Gastro-esophageal reflux disease without esophagitis; G89.4 Chronic pain syndrome; R13.10 Dysphagia, unspecified; H53.2 Diplopia; M79.7 Fibromyalgia; M19.90 Unspecified osteoarthritis, unspecified site; Z79.82 Long term (current) use of aspirin; Z79.899 Other long term (current) drug therapy; Z87.828 Personal history of other (healed) physical injury and trauma; Z90.49 Acquired absence of other specified parts of digestive tract; Z87.19 Personal history of other diseases of the digestive system; Z90.710 Acquired absence of both cervix and uterus; Z90.89 Acquired absence of other organs; Z87.42 Personal history of other diseases of the female genital tract; Z87.820 Personal history of traumatic brain injury; Z98.1 Arthrodesis status; Z98.890 Other specified postprocedural states; Z88.6 Allergy status to analgesic agent; Z88.5 Allergy status to narcotic agent; Z88.8 Allergy status to other drugs, medicaments and biological substances; Z82.49 Family history of ischemic heart disease and other diseases of the circulatory system
CPT/HCPCS: 36415; 70450; 70553; 71046; 71275; 72050; 72156; 78452; 80048; 80053; 80061; 83690; 83735; 83880; 84443; 84484; 85025; 85610; 85730; 87635; 93005; 93017; 93306; 93458; 94760; 96360; 96361; 99285

== ENCOUNTER 2022-01-13 04:16 | Emergency (ER) | payer MEDICARE, BC ==
[2022-01-13 04:22] VITALS: BP 160/91; PULSE 71; RESP 18; TEMP 97.7
[2022-01-13] MEDS ORDERED: TETRACAINE 0.5% OPHTH (PF) DROPS 4 ML BTL LEFT EYE STA (04:34)
[2022-01-13] MEDS ORDERED: PROPARACAINE 0.5% OPHTH DROPS 15 ML BTL LEFT EYE STA (04:36)
[2022-01-13] MEDS ORDERED: FLUORESCEIN STRIPS 1 MG STRIP LEFT EYE ONE (06:26)
[2022-01-13] MEDS ORDERED: TOBRAMYCIN 0.3% OPHTH DROPS 5 ML BTL LEFT EYE STA (06:39)
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
== END 2022-01-13 07:10 | disposition home or self-care (01) ==
LOC: EC 04:16
DX: S05.02XA Injury of conjunctiva and corneal abrasion without foreign body, left eye, initial encounter (principal); I10 Essential (primary) hypertension; K21.9 Gastro-esophageal reflux disease without esophagitis; Z79.83 Long term (current) use of bisphosphonates; Z88.5 Allergy status to narcotic agent; Z88.6 Allergy status to analgesic agent; Z88.8 Allergy status to other drugs, medicaments and biological substances; W19.XXXA Unspecified fall, initial encounter

== ENCOUNTER → 2022-12-11 | Outpatient (CLI) | payer MEDICARE, BC ==
--- NOTE | 2022-12-11 09:06 | CT ---
EXAMINATION TYPE: CT foot RT wo con DATE OF EXAM: 12/11/2022 COMPARISON: No radiographic correlation available HISTORY: 72-year-old female M25.571, Right foot pain post bunion surgery on 09/28/22. TECHNIQUE: Contiguous axial scanning of the right foot without IV contrast. Coronal and sagittal kim nstructions performed. 3-D reconstructions generated on a dedicated independent workstation. CT DLP: 301 mGycm Automated exposure control for dose reduction was used. FINDINGS: Previous 2 plate and screw fixation along the medial and dorsal aspect of the degenerative first TMT joint. Bony bridging here is incomplete. Hardware appears uncomplicated. There is mild degenerative change first MTP joint more moderate degenerative change along the first m etatarsal sesamoid joints. Mild hallux valgus. Bunion formation. Moderate to severe degenerative change second PIP joint. There is moderate to severe degenerative change along the second through fourth TMT joint articulatio ns with loss of joint space, subchondral cystic change, sclerosis, and prominent spurring. There is a transverse fracture involving the proximal third shaft of the second metatarsal. This show s minimal 2 mm of dorsal displacement. Fracture line is well visualized and there may be slight scler osis at some of the fracture margin but there is also healing periosteal callus and moderate perioste al hematoma present here. IMPRESSION: 1. UNCOMPLICATED SURGICAL ARTHRODESIS FIRST TMT JOINT. BONY BRIDGING HERE IS INCOMPLETE. 2. SUBACUTE TRANSVERSE FRACTURE PROXIMAL THIRD ASPECT OF THE SECOND METATARSAL SHAFT. MINIMAL 2 MM OF DISPLACEMENT. SUSPECT CONTINUED MOVEMENT AT THE FRACTURE GIVEN SLIGHT SCLEROSIS AT SOME OF THE FRACT URE MARGIN, PERIOSTEAL HEALING CALLUS, AND MODERATE PERIOSTEAL HEMATOMA. 3. ADVANCED DEGENERATIVE CHANGE SECOND THROUGH FOURTH TMT JOINTS. Moderate to severe degenerative yi nge second PIP joint. 4. Mild hallux valgus with bunion.
== END | disposition home or self-care (01) ==
LOC: RADCTMAIN 07:47
PROVIDERS: ATTEND Podiatrist
DX: S92.321A Displaced fracture of second metatarsal bone, right foot, initial encounter for closed fracture (principal); M20.11 Hallux valgus (acquired), right foot; M19.071 Primary osteoarthritis, right ankle and foot; M21.611 Bunion of right foot

== ENCOUNTER 2022-12-19 09:46 | Day surgery (SDC) | payer MEDICARE, BC ==
[~2022-12-19 09:46] MED LIST changes: -DEXAMETHASONE SOD PHOSPHATE 10 MG/ML 1 ML VIAL IV ONE; -HYDROmorphone 0.5 MG/0.5 ML SYRINGE IVP PRN; +LACTATED RINGERS 1,000 ML IV SCH; -ONDANSETRON 4 MG/2 ML VIAL IVP ONE; -ceFAZolin 1,000 MG in SODIUM CHLORIDE 0.9% IRRIGATIO 1,000 ML IRRIGATION ONE
[2022-12-19 10:11] VITALS: RESP 16; TEMP 97.7
[2022-12-19] MEDS ORDERED: ONDANSETRON 4 MG/2 ML VIAL ONE (10:11)
[2022-12-19] MEDS ORDERED: ONDANSETRON 4 MG/2 ML VIAL IVP ONE (10:15)
[2022-12-19] MEDS ORDERED: LIDOCAINE 2% INJ 20 MG/ML (2 ML VIAL) ONE (10:18)
[2022-12-19] MEDS ORDERED: PROPOFOL 10 MG/ML 20 ML VIAL IV ONE (10:18)
--- NOTE | 2022-12-19 10:29 | P.PCN ---
Date of Procedure: 12/19/22 Procedure(s) Performed: BRIEF HISTORY: Patient is a 72-year-old, pleasant, white female scheduled for an upper endoscopy for evaluation of long-standing history of GERD. Lately has been complaining of epigastric burning sensation and intermittent dysphagia to solids for the last 2 years. She is currently on Protonix 40 mg twice daily and notices some improvement in his symptoms. She is scheduled for an upper endoscopy to rule out complicated reflux. PROCEDURE PERFORMED: Esophagogastroduodenoscopy with biopsy. PREOPERATIVE DIAGNOSIS: Long-standing history of GERD with worsening symptoms lately IV sedation per anesthesia. PROCEDURE: After informed consent was obtained, the patient was brought into the endoscopy unit. IV sedation was administered by Anesthesia under continuous monitoring. Initially the Olympus GIF-140 video endoscope was inserted into the mouth. Esophagus intubated without any difficulty. It was gradually advanced into the stomach and duodenum and carefully examined. The bulb and the second part of the duodenum appeared normal. The scope at this time was withdrawn to the stomach, adequately insufflated with air, and upon careful examination, mucosa of the antrum, had mild diffuse gastritis. The proximal body the stomach along the greater curvature there was a 1 mm gastric polyp that was biopsied. Rest of the body, cardia and the fundus appeared normal. The scope was then withdrawn into the esophagus. The GE junction was located at 35 cm from the incisors. There was a moderate size paraesophageal hiatal hernia noted. The esophagus appeared tortuous but the mucosa appeared normal. There were no erosions or ulcerations seen, biopsies were done from the distal esophagus and the patient tolerated the procedure well. IMPRESSION: 1. Moderate size paraesophageal hiatal hernia. 2. Mild antral gastritis and 1 cm gastric polyp in the gastric body status post biopsy RECOMMENDATIONS: The findings of this examination were discussed with the patient as well as a family. She was advised to follow with the biopsy results. In the meantime she'll continue with Protonix 40 mg twice daily to be taken half hour before breakfast and dinnertime and follow antireflux measures..
[2022-12-19 10:49] VITALS: BP 120/84; PULSE 68
== END 2022-12-19 11:20 | disposition home or self-care (01) ==
LOC: ORWHC2ENDO 09:46
PROVIDERS: ATTEND Internal Medicine Gastroenterology
DX: K29.50 Unspecified chronic gastritis without bleeding (principal); K21.00 Gastro-esophageal reflux disease with esophagitis, without bleeding; K31.7 Polyp of stomach and duodenum; K44.9 Diaphragmatic hernia without obstruction or gangrene; I25.2 Old myocardial infarction; I25.10 Atherosclerotic heart disease of native coronary artery without angina pectoris; I10 Essential (primary) hypertension; E78.5 Hyperlipidemia, unspecified; K91.0 Vomiting following gastrointestinal surgery; G25.81 Restless legs syndrome; M79.7 Fibromyalgia; K21.9 Gastro-esophageal reflux disease without esophagitis; Z79.82 Long term (current) use of aspirin; Z79.899 Other long term (current) drug therapy
CPT/HCPCS: 88305; 43239; J2405; J2704; J2001

== ENCOUNTER 2022-12-26 11:02 | Day surgery (SDC) | payer MEDICARE, BC ==
[~2022-12-26 11:02] MED LIST changes: +DEXAMETHASONE SOD PHOSPHATE 4 MG/ML 1 ML VIAL IV ONE; +MIDAZOLAM 2 MG/2 ML VIAL IV PRN; +ONDANSETRON 4 MG/2 ML VIAL IVP ONE
[2022-12-26] MEDS ORDERED: MIDAZOLAM 2 MG/2 ML VIAL IVP ONE (12:41)
--- NOTE | 2022-12-26 13:03 | P.ANPRN ---
Procedure Note - Anesthesia - Nerve Block Performed Right Popliteal Single Time Out Performed: Yes Date of Procedure: 12/26/22 Procedure Start Time: 12:40 Procedure Stop Time: 12:44 Location of Patient: PreOp Indication: Acute Post-Operative Pain, Requested by Surgeon Sedation Type: Sedate with meaningful contact maintained Preparation: Sterile Prep Position: Supine Needle Types: Pajunk Needle Gauge: 21 Ultrasound used to visualize needle placement: Yes Ultrasound used to observe medication spread: Yes Blood Aspirated: No Pain Paresthesia on Injection Noted: No Resistance on Injection: Normal Image Stored and Saved: Yes Events: Uneventful and Well Tolerated (Ropivacaine 0.5% 20 mL plus dexamethasone 4 mg)
--- NOTE | 2022-12-26 13:04 | P.ANPRN ---
Procedure Note - Anesthesia - Nerve Block Performed Right Adductor Canal Single Time Out Performed: Yes Date of Procedure: 12/26/22 Procedure Start Time: 12:45 Procedure Stop Time: 12:48 Location of Patient: PreOp Indication: Acute Post-Operative Pain, Requested by Surgeon Sedation Type: Sedate with meaningful contact maintained Preparation: Sterile Prep Position: Supine Needle Types: Pajunk Needle Gauge: 21 Ultrasound used to visualize needle placement: Yes Ultrasound used to observe medication spread: Yes Blood Aspirated: No Pain Paresthesia on Injection Noted: No Resistance on Injection: Normal Image Stored and Saved: Yes Events: Uneventful and Well Tolerated (Ropivacaine 0.5% 20 mL plus dexamethasone 4 mg)
[2022-12-26] MEDS ORDERED: ceFAZolin 1,000 MG in SODIUM CHLORIDE 0.9% 1,000 ML IRRIGATION ONE (13:53)
--- NOTE | 2022-12-26 14:58 | P.OP ---
Date of Procedure: 12/26/22 Preoperative Diagnosis: 1. 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 Displaced second metatarsal fracture right foot Postoperative Diagnosis: 1. Same 2. Same Procedure(s) Performed: 1. First tarsometatarsal joint arthrodesis right foot 2. Open reduction with internal fixation right second metatarsal fracture Implants: Amory Lapidus plate with associated screws Hipolito 5 Hole straight plate with screws 3cc Augment Anesthesia: GETA Surgeon: Jonathan Hartman Estimated Blood Loss (ml): 3 Pathology: none sent Condition: stable Disposition: PACU Description of Procedure: Prior to the patient being brought to the operative room, anesthesia Mr. nerve block on the right lower extremity. The patient was then brought into the operative room placed on table supine position. Timeout was taken to confirm correct patient identifiers, correct laterally surgery, and correct procedure. Once all staff in the room in agreement timeout the patient was induced placed under general anesthesia. A well-padded tourniquet was placed on the right ank le and the right foot was prepped and draped usual manner. The right foot was exsanguinated and the tourniquet inflated to 250 mmHg Attention directed over the medial aspect of the right midfoot where an incision was made over the first tarsal metatarsal joint. Incision was deepened down to the saphenous tissue careful to identify, avoid, and retract any neurovascular structures and cauterize any bleeding vessels. Dissection was continued down to the plate on the medial aspect of the arthrodesis site was identified. The screws in the plate were removed and then the plate was removed in its entirety. The pseudoarthrosis was identified and the first TMT joint stressed which noted movement between the bony segments. A sharp osteotome was used to remove the fibrotic tissue from between the arthrodesis segments. This was done down to bleeding medullary bone. The wound is thoroughly irrigated with antibiotic saline. A Amory Lapidus plate was positioned medially at the arthrodesis site. Fluoroscopy was used to assess the positioning both on AP and lateral views. Once it was satisfactorily positioned, temporary fixation was utilized to hold the plate in position. A drill guide that was in the plate was then utilized to place a K wire through the central aspect of the. Then the temporary plate and guide were removed and then a reamer placed over the guidewire to provide indentation the bone for the placement of the plate. Then the plate was positioned where the compression slot was placed into the bony indent. Distal locking screws were placed first. Then 2 ml of augment was injected between the arthrodesis segments. The drill guide for the compression hole was then positioned and adjusted so that there was a plantar lateral trajectory across the arthrodesis site and aiming for the intermediate cuneiform. The drill was advanced under fluoroscopic visualization from the right trajectory. Then the compression screw was inserted and once the head engaged the plate, the temporary fixation proximally was removed there was significant compression across the arthrodesis site. Fluoroscopic imaging to the proper placement screw on AP and lateral views. 2 additional locking screws were placed into the proximal aspect of the plate. Screws were done in such a way so that the across the intercuneiform joint. Final fluoroscopic imaging showed proper placement of all hardware was compression of the arthrodesis site. Wound is thoroughly irrigated with antibiotic saline. Deep closure done with 2-0 Vicryl. Subcu closure done for Monocryl. Skin closure done with 3-0 Stratafix a running subcuticular manner. Then attention directed over the dorsal aspect of the right foot, where a linear incision was made over the second metatarsal. The incision was deepened down the saphenous tissue careful to identify, avoid, and retract any neurovascular structures and cauterize any bleeding vessels. Blunt dissection was then continued down to level of the second metatarsal shaft. The fracture was identified and any interposing soft tissue or hematoma were removed. A 5 hole plate with the distal compression slot was placed over the fracture site. Fluo roscopy was used to adjust the position of the plate so that the central hole was over the fracture site in the compression slot was distal to it. Once was positioned correctly, temporary fixation was utilized hole the plate in place. Approximately locking screws were placed first. Then the compression slot was acentrically drilled for the placement of the compression screw. Once drilled, the screw was inserted and that once it engaged the plate provided compression across the fracture. Final locking screws placed distally in the plate. Final fluoroscopic imaging showed anatomic alignment of the fracture with proper placement of all hardware. The wound is irrigated with anatomic saline. Deep closure done with 3-0 Vicryl. Subcu closure done for Monocryl. Skin closure done with 3-0 Stratafix in a running subcu cuticular manner. Dermal glue was placed over both incisions and allowed to dry. Steri-Strips are placed across incision. All incisions were covered with an Arthrex jumpstart dressing and then a dry sterile dressings applied the right foot. The tourniquet was released and capillary refill return to all digits on the right foot. The patient then placed in a short fracture boot with the ankle in neutral position. Anesthesia was reversed and the patient was taken recovery with vital signs stable.
[2022-12-26 15:11] VITALS: TEMP 97
[2022-12-26 16:04] VITALS: BP 137/82; PULSE 78; RESP 16
[2022-12-27] MEDS ORDERED: HYDROmorphone 0.5 MG/0.5 ML SYRINGE IVP PRN (07:00)
== END 2022-12-26 16:24 | disposition home or self-care (01) ==
LOC: OR 11:02
PROVIDERS: ATTEND Podiatrist
DX: M96.0 Pseudarthrosis after fusion or arthrodesis (principal); S92.321A Displaced fracture of second metatarsal bone, right foot, initial encounter for closed fracture; G89.18 Other acute postprocedural pain; I25.2 Old myocardial infarction; I11.9 Hypertensive heart disease without heart failure; M19.90 Unspecified osteoarthritis, unspecified site; G25.81 Restless legs syndrome; M79.7 Fibromyalgia; K21.9 Gastro-esophageal reflux disease without esophagitis; G62.9 Polyneuropathy, unspecified; Z88.5 Allergy status to narcotic agent; Z88.8 Allergy status to other drugs, medicaments and biological substances; Z79.82 Long term (current) use of aspirin; Z79.899 Other long term (current) drug therapy; X58.XXXA Exposure to other specified factors, initial encounter
CPT/HCPCS: 28740; 28485; 64447; 64999; J2250; J1100; J0690 ×2; J2405